=== PATIENT | male | born 1945 ===

== ENCOUNTER 2025-05-16 09:32 | Outpatient (AMB) | payer OTHER, SELFPAY ==
--- NOTE | 2025-05-16 09:38 | A.PHYSOV ---
Vital Signs 05/16/25 09:42 Weight 250 lb Intake Visit Reasons: F/U after injection 03/18/25 + rt wrist injection Intake Note: Patient is a 79 year old male in office today after Right L2 and L3 Transforaminal Epidural on 03/18/25. Patient also requesting a wrist injection. 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 The patient has a history of chronic lower back pain and lumbar radiculitis, with an MRI of the lumbar-sacral spine on October 05, 2023, revealing diffuse degenerative changes, spondylolisthesis of L5 on S1 with possible compression of the right L5 nerve root, and crowding of the L3 nerve roots. A thoracic spine MRI from August 12, 2022, showed moderate to severe spinal stenosis at T11-T12, for which the patient underwent a decompression and fusion of T10 through T12, which successfully alleviated lower thoracic pain and improved ambulation. The patient received right L2 and L3 transforaminal injections, most recently on March 18, 2025, which provided significant, miraculous relief. Approximately six weeks ago, the patient developed severe right wrist pain after repairing a fence with a drill. The pain is significant enough to prevent the patient from holding a cell phone or a glass of water and disrupts sleep. The patient sought treatment at a walk-in orthopedic clinic where an X-ray was negative, and a cortisone injection was administered three weeks ago with little effect. They suggested a possible triangular fibrocartilage complex (TFCC) injury and referred the patient for an MRI, but the patient has been unable to schedule it. He contacted the MRI facility, and they never received a referral. The patient also tried six sessions of acupuncture without benefit. Pain Description - Back and Leg Pain: The patient described the previous injections as a miracle, providing 100% reduction of pain in both legs and knees. - Right Wrist Pain: The patient reports the onset was six weeks ago, possibly after using a drill while repairing a fence. - Location: The pain is localized to the ulnar side of the right wrist. - Severity and Quality: The pain is described as very painful. - Interference with Function: The pain prevents the patient from holding a cell phone or a glass of water and causes sleep disturbances. - Alleviating/Exacerbating Factors: The patient uses Tylenol to mitigate the pain. - Prior Treatments: A cortisone injection three weeks ago and six sessions of acupuncture did not provide significant relief. Results - Lumbar Sacral Spine MRI (10/05/2023): Showed diffuse degenerative changes, spondylolisthesis of L5 on S1 with crowding and possible compression of the right L5 nerve root, and crowding of the L3 nerve roots. - Thoracic Spine MRI (08/12/2022): Showed moderate to severe spinal stenosis at the T11-T12 level. - Right Wrist X-ray (recent): Did not show any significant findings. [facility] Medical History (Updated 05/16/25 @ 15:33 by Jasper Borjas DO) Post laminectomy syndrome Spinal stenosis, lumbar region with neurogenic claudication Lumbar radiculitis Right wrist pain Wrist pain Surgical History History of thoracic surgery (Unknown) History of neck surgery (Unknown) History of cholecystectomy (Unknown) History of broken leg (Unknown) Social History Alcohol intake: current Alcohol intake frequency: does not drink Patient Tobacco Use Status: Former Tobacco user Current occupational status: retired Review of Systems Narrative Review of Systems - Musculoskeletal: Reports severe, localized right wrist pain for the past six weeks. - Musculoskeletal: Reports history of chronic lower back pain, which is currently well-controlled after a recent injection. - Neurological: Reports history of lumbar radiculitis, with symptoms currently resolved. - Constitutional: Reports sleep disturbance secondary to right wrist pain. Physical Exam Exam Exam: Physical Exam - Musculoskeletal: Examination of the right wrist reveals point tenderness to palpation over the ulnar aspect, ulnar styloid process and over triangular cartilage. - Musculoskeletal: Pain is elicited with wrist movement. - Musculoskeletal: No significant tenderness is noted over the radial aspect of the wrist. Lumbar extension was restricted. Dural tension signs were negative. Neurological examination was nonfocal. Patient demonstrated no upper motor neuron signs. Office Procedures AMB Wrist Injection Wrist Joint injection Procedure Details: With patient sitting position medial aspect of the right wrist was prepped with alcohol. 1.5 in 25 gauge hypodermic needle was introduced percutaneously just distal to the ulnar styloid in the area of TFCC. Total volume of 1.5 cc containing 20 mg of triamcinolone and 2% lidocaine was peppered in the area. Patient reported 100% reduction of his pain immediately after the injection and tolerated procedure without complications. Wrist Joint Injection : Right Procedure code (CPT) selection complete Office Meds Kenalog 40 mg/mL suspension for injection Performing Provider: Jasper Borjas DO Per[facility] Administered by: Jasper Borjas DO on 05/16/25 15:30 Dose Route Admin Location Dispensed Lot Number Expiration Date [facility] [place] 20 mg intra-articular 1 mL [id number] [employer] Total Dispensed Waste 1 mL 50 % lidocaine (PF) 20 mg/mL (2 %) injection solution Performing Provider: Jasper Borjas DO [facility] Administered by: Jasper Borjas DO on 05/16/25 15:30 Dose Route Admin Location Dispensed Lot Number Expiration Date [facility] [employer] [place] 20 mg intra-articular 5 mL [id number] [employer] Total Dispensed Waste 5 mL 80 % Assessment & Plan Assessment & Plan (1) Right wrist pain: Code(s): M25.531 - Pain in right wrist Category: Medical (2) Lumbar radiculitis: Code(s): M54.16 - Radiculopathy, lumbar region Category: Medical (3) Spinal stenosis, lumbar region with neurogenic claudication: Code(s): M48.062 - Spinal stenosis, lumbar region with neurogenic claudication Category: Medical (4) Post laminectomy syndrome: Code(s): M96.1 - Postlaminectomy syndrome, not elsewhere classified Category: Medical Plan Pain Management - Affect: The patient reports the right wrist pain is driving me crazy and disrupts sleep most of the night. - Analgesia: The patient uses Tylenol for wrist pain. - Analgesia: Lumbar epidural steroid injections provide excellent relief for back and leg pain. - Activities of Daily Living: The wrist pain interferes with the ability to hold a coffee cup, cell phone, or a glass of water. Plan Patient was informed and verbally consented to the use of an ambient scribe for clinic note documentation during this visit. 1. Right Wrist Pain The patient's acute right wrist pain, which began six weeks ago and has not responded to a prior injection or acupuncture, is suspected to be a triangular fibrocartilage complex (TFCC) tear, given the mechanism of injury and focal tenderness. An MRI is necessary for diagnosis as the recent X-ray was normal. A steroid injection was administered to the point of maximal tenderness in the right wrist today for symptomatic relief. An MRI of the right wrist will be ordered, and the patient was advised to proceed with whichever MRI appointment becomes available first. Post-injection instructions were provided, including icing the area if soreness develops. 2. Chronic Lower Back Pain With Lumbar Radiculitis The patient's chronic lower back pain and radiculitis responded exceptionally well to the right L2 and L3 transforaminal injections performed on March 18, with the patient describing the relief as a miracle. The plan is to repeat these injections in approximately three to four months. Staff will contact the patient to schedule the procedure for sometime in June. Risks and benefits of the procedure were discussed with the patient. Potential alternative measures were also discussed. Patient understands that the procedure is completely elective. Potential side effects associated with injectable medications were discussed. All questions were answered to the patient's satisfaction. Discussion Notes I discussed with the patient the new onset of severe right wrist pain. I explained that based on the history and physical exam findings, a triangular fibrocartilage complex (TFCC) tear is suspected, which would not be visible on the patient's recent negative X-ray. I emphasized the need for an MRI to make a definitive diagnosis. We discussed management options, including the patient's request for another cortisone injection today due to severe pain and sleep disruption, despite having one three weeks prior at another facility. The patient consented to the procedure after I explained that while different steroids like Kenalog or Depo-Medrol can be used, the placement of the injection is the most critical factor. I will order an MRI of the right wrist, and we agreed that the patient should pursue whichever MRI appointment becomes available first, canceling the other. I provided post-procedure instructions, including icing the wrist if it becomes sore. We also reviewed the excellent response to the last lumbar epidural steroid injection from March 18, 2025. We agreed to schedule a repeat right L2 and L3 transforaminal injection for June, with staff to call the patient for scheduling. Patient Instructions - If your right wrist feels sore tonight, apply ice to the area. - We are ordering an MRI scan of your right wrist. - You have two referrals for an MRI; please schedule and complete the one that is available first, then cancel the other appointment. - Our office will call you to schedule your next back injection, which will be sometime in June. Orders: Orders MR wrist RT wo con Today M25.531 - Pain in right wrist AMB Wrist Injection Today M25.531 - Pain in right wrist Coding Level of Care Code Est Pt Level 4 (45964) Complex visit Add On G2211 Diagnoses Right wrist pain M25.531 Lumbar radiculitis M54.16 Spinal stenosis, lumbar region with neurogenic claudication M48.062 Post laminectomy syndrome M96.1 CPT Codes Wrist Joint injection - Ankle Joint Injection : Right ([id number])
--- OUTSIDE RECORDS SUMMARY | 2025-05-16 10:17 | XMS_ITS ---
Author Name [facility] Organization Unknown Results Test Name/Text Value Interpretation Date Range Source GLUCOSE BLDC GLUCOMTR [facility] 104.0 mg/dL Normal 03/29/2024 70 - 199 [facility] GLUCOSE BLDC GLUCOMTR [facility] 107.0 mg/dL Normal 02/09/2024 70 - 199 [facility] GLUCOSE BLDC GLUCOMTR [facility] 137.0 mg/dL Normal 10/23/2023 70 - 199 [facility] Service [facility] XXX-Imp Before Meal Normal 10/23/2023 [facility] ANION GAP SERPL [facility] 6.0 mmol/L Normal 10/23/2023 5 - 14 [facility] Glomerular filtration rate/1.73 sq M. predicted 36.0 Below low normal 10/23/2023 60 - [facility] CREAT SERPL [facility] 1.9 mg/dL Above high normal 10/23/2023 0.7 - 1.3 [facility] SODIUM SERPL [facility] 137.0 mmol/L Normal 10/23/2023 135 - 14 5 [facility] POTASSIUM SERPL [facility] 4.2 mmol/L Normal 10/23/2023 3.5 - 5.1 [facility] CHLORIDE SERPL [facility] 102.0 mmol/L Normal 10/23/2023 98 - 107 [facility] CALCIUM SERPL [facility] 9.4 mg/dL Normal 10/23/2023 8.4 - 10.2 [facility] HCO3 SER SC[facility] 29.0 mmol/L Normal 10/23/2023 24 - 32 [facility] BUN SERPL [facility] 44.0 mg/dL Above high normal 10/23/2023 9 - 2 0 [facility] GLUCOSE SERPL [facility] 129.0 mg/dL Normal 10/23/2023 70 - 199 [facility] Glomerular filtration rate/1.73 sq M. predicted 38.0 Below low normal 10/23/2023 60 - [facility] CREAT SERPL [facility] 1.8 mg/dL Above high normal 10/23/2023 0.7 - 1.3 [facility] GLUCOSE BLDC GLUCOMTR [facility] 171.0 mg/dL Normal 10/23/2023 70 - 199 [facility] GLUCOSE BLDC GLUCOMTR [facility] 131.0 mg/dL Normal 10/22/2023 70 - 199 [facility] Service [facility] XXX-Imp After Meal Normal 10/22/2023 [facility] Service [facility] XXX-Imp After Meal Normal 10/22/2023 [facility] GLUCOSE BLDC GLUCOMTR [facility] 215.0 mg/dL Above high normal 10/22/2023 70 - 199 [facility] GLUCOSE BLDC GLUCOMTR [facility] 156.0 mg/dL Normal 10/22/2023 70 - 199 [facility] CREAT SERPL MCNC 2.0 mg/dL Above high normal 10/22/2023 0.7 - 1.3 [facility] SODIUM SERPL SCNC 137.0 mmol/L Normal 10/22/2023 135 - 14 5 [facility] POTASSIUM SERPL SCNC 4.2 mmol/L Normal 10/22/2023 3.5 - 5.1 [facility] ANION GAP SERPL SCNC 7.0 mmol/L Normal 10/22/2023 5 - 14 [facility] Glomerular filtration rate/1.73 sq M. predicted 34.0 Below low normal 10/22/2023 60 - [facility] BUN SERPL MCNC 39.0 mg/dL Above high normal 10/22/2023 9 - 2 0 [facility] CHLORIDE SERPL SCNC 102.0 mmol/L Normal 10/22/2023 98 - 107 [facility] CALCIUM SERPL [facility] 9.4 mg/dL Normal 10/22/2023 8.4 - 10.2 [facility] GLUCOSE SERPL MCNC 129.0 mg/dL Normal 10/22/2023 70 - 199 [facility] HCO3 SER SC[facility] 28.0 mmol/L Normal 10/22/2023 24 - 32 [facility] GLUCOSE BLDC GLUCOMTR [facility] 159.0 mg/dL Normal 10/22/2023 70 - 199 [facility] GLUCOSE BLDC GLUCOMTR MC[facility] 182.0 mg/dL Normal 10/21/2023 70 - 199 [facility] GLUCOSE BLDC GLUCOMTR [facility] 218.0 mg/dL Above high normal 10/21/2023 70 - 199 [facility] GLUCOSE BLDC GLUCOMTR MC[facility] 126.0 mg/dL Normal 10/21/2023 70 - 199 [facility] GLUCOSE SERPL MCNC 121.0 mg/dL Normal 10/21/2023 70 - 199 [facility] CHLORIDE SERPL SCNC 100.0 mmol/L Normal 10/21/2023 98 - 107 [facility] HCO3 SER SCNC 26.0 mmol/L Normal 10/21/2023 24 - 32 CTT [facility] SODIUM SERPL SCNC 136.0 mmol/L Normal 10/21/2023 135 - 14 5 [facility] Glomerular filtration rate/1.73 sq M. predicted 36.0 Below low normal 10/21/2023 60 - [facility] ANION GAP SERPL SCNC 10.0 mmol/L Normal 10/21/2023 5 - 14 [facility] BUN SERPL MCNC 37.0 mg/dL Above high normal 10/21/2023 9 - 2 0 [facility] CREAT SERPL MCNC 1.9 mg/dL Above high normal 10/21/2023 0.7 - 1.3 [facility] CALCIUM SERPL MCNC 9.4 mg/dL Normal 10/21/2023 8.4 - 10.2 [facility] POTASSIUM SERPL SCNC 4.3 mmol/L Normal 10/21/2023 3.5 - 5.1 [facility] GLUCOSE BLDC GLUCOMTR [facility] 271.0 mg/dL Above high normal 10/21/2023 70 - 199 [facility] GLUCOSE BLDC GLUCOMTR MC[facility] 124.0 mg/dL Normal 10/20/2023 70 - 199 [facility] BLOOD BANK CMNT PATIENT-IMP Testing performed at [facility], [address] [place] [id number], April White MD Senior Ui Developer, FRANC [id number] Normal 10/20/2023 [facility] ABO+RH GP BLD A POSITIVE Normal 10/20/2023 [facility] GLUCOSE BLDC GLUCOMTR [facility] 104.0 mg/dL Normal 10/20/2023 70 - 199 [facility] BLD GP AB SCN SERPL QL NEGATIVE Normal 10/20/2023 [facility] ABO+RH GP BLD A POSITIVE Normal 10/20/2023 [facility] BLOOD BANK CMNT PATIENT-IMP Testing performed at [facility], [address] [place] [id number], April White MD Senior Ui Developer, [facility] [id number] Normal 10/20/2023 [facility] History of Medication Use Medication Directions Dispensed Refills Start Date End Date Status amoxicillin (AMOXIL) 500 mg capsule PLEASE SEE ATTACHED FOR DETAILED DIRECTIONS 02/17/20 active chlorhexidine (PERIDEX) 0.12 % solution RINSE WITH 1/2 OUNCE BY MOUTH TWICE A DAY DIRECTED. DO NOT SWALLOW 02/17/20 24 active oxyCODONE-acetaminophen (PERCOCET) 5-325 MG per tablet Take 1 tablet by mouth every 6 (six) hours as needed for pain. 11/03/19 24 024 aborted oxyCODONE-acetaminophen (PERCOCET) 5-325 MG per tablet Take 1 tablet by mouth every 6 (six) hours as needed for pain. 11/03/19 24 active oxyCODONE (ROXICODONE) 5 MG immediate release tablet Take 1-2 tablets (5-10 mg total) by mouth every 4 (four) hours as needed for pain. 10/27/19 24 024 aborted aspirin 81 MG chewable tablet Chew 1 tablet (81 mg total) by mouth daily. 10/27/19 24 024 aborted aspirin 81 mg EC tablet Take 1 tablet (8 1 mg total) by mouth 1 (one) time each day. 10/27/19 24 active aspirin EC 81 MG tablet Take 1 tablet (8 1 mg total) by mouth daily. 10/27/19 24 active cyclobenzaprine (FLEXERIL) 5 MG tablet Take 2 tablets (10 mg total) by mouth 3 (three) times a day as needed for muscle spasms. 10/27/19 24 active oxyCODONE (ROXICODONE) 5 MG immediate release tablet Take 1-2 tablets (5-10 mg total) by mouth every 4 (four) hours as needed for pain. 10/27/19 active sodium chloride 0.9% bolus (NS) 500 mL 500 mL, Intravenous, at 500 mL/hr, Once, On Thu10/22/23 at 1445, For 1 dose 10/22/19 024 completed aspirin EC 81 MG tablet Take 1 tablet (8 1 mg total) by mouth daily. 10/21/19 024 active bisacodyl (DULCOLAX) suppository 10 mg 10 mg, Rectal, Once as needed, constipation, Starting on Thu10/21/23 at 0000, For 1 doseAdminister POD#2 if no BM 10/21/19 active hydroCHLOROthiazide (HYDRODIURIL) tablet 25 mg 25 mg, Oral, Daily, First dose on Thu10/21/23 at 0900 10/21/19 active insulin glargine (LANTUS) injection 30 Units 30 Units, Subcutaneous, 2 times daily, First dose on Thu10/20/23 at 2100 10/21/19 active metFORMIN (GLUCOPHAGE) tablet 1,000 mg 1,000 mg, Oral, Every Morning with breakfast, First dose on Thu10/21/23 at 0800 10/21/19 active polyethylene glycol (MIRALAX) packet 17 g 17 g, Oral, Daily, First dose on Thu10/21/23 at 0900 10/21/19 24 active senna (SENOKOT) 8.6 MG tablet Take 1 tablet by mouth 2 (two) times a day. 10/21/19 active tamsulosin (FLOMAX) 24 hr capsule 0.4 mg 0.4 mg, Oral, Every Night at Bedtime, First dose (after last modification) on Thu10/20/23 at 2300 10/21/19 active valsartan (DIOVAN) tablet 160 mg 160 mg, Oral, Daily, First dose on Thu10/21/23 at 0900 10/21/19 active cyclobenzaprine (FLEXERIL) 5 MG tablet Take 2 tablets (10 mg total) by mouth 3 (three) times a day as needed for muscle spasms. 10/20/19 024 aborted senna (SENOKOT) 8.6 MG tablet Take 1 tablet by mouth 2 (two) times a day. 10/20/19 active ceFAZolin (ANCEF) injection 2 g 2 g, Intravenous, Every 8 hours, First dose on Thu10/20/23 at 1800, For 2 dosesTotal of 3 doses; 1 dose pre-op, 2 doses post-op For Adults, if ordered IV then reconstitute each 1GM vial with 10mL sterile water or normal saline and administer IV Push over 3-5 minutes. 10/20/19 completed acetaminophen (TYLENOL EXTRA STRENGTH) 500 MG tablet 1,000 mg 1,000 mg, Oral, Once, On Thu10/20/23 at 0945, For 1 dose, Pre-opDo not administer to patients with abnormal LFTS. Do Not exceed 3000 mg in 24 hours. 10/20/19 completed gabapentin (NEURONTIN) capsule 100 mg 100 mg, Oral, Once, On Thu10/20/23 at 0945, For 1 dose, Pre-opHold for patients greater than 75 years old. 10/20/19 completed HYDROmorphone (DILAUDID) injection 0.5 mg 0.5 mg, Intravenous, Every 15 min PRN, severe pain (7-10), Starting on Thu10/20/23 at 1331, PACU/Phase 1FOR PACU USE ONLY. If unable to take by mouth. Do not exceed 2 mg. Administer IV push over 2-3 minutes. 10/20/19 aborted orphenadrine (NORFLEX) injection 30 mg 30 mg, Intravenous, Once as needed, muscle spasms, for musculoskeletal pain, to achieve pain scale less than or equal to 4, Starting on Thu10/20/23 at 1331, For 1 dose, PACU/Phase 1 10/20/19 completed acetaminophen (TYLENOL) tablet 650 mg 650 mg, Oral, Every 6 hours PRN, for any level of discomfort, Starting on Thu10/20/23 at 1631 10/20/19 active benzocaine-menthol (CEPACOL) lozenge 1 lozenge 1 lozenge, Oral, Every 2 hours PRN, sore throat, Starting on Thu10/20/23 at 1631 10/20/19 active dextrose (D10W) 10% bolus 125 mL [Order 1 Start] Name: dextrose (D10W) 10% bolus 125 mL Signed Summary: 125 mL, Intravenous, Administer over 10 Minutes, at 750 mL/hr, As needed, low blood sugar, Starting on Thu10/20/23 at 1559Hypoglycemia defined as FSG<70mg/dl. Use for responsive patients WITH IV access AND unable to tolerate PO 10/20/19 active dextrose 5 % and sodium chloride 0.45 % with KCl 20 mEq/L infusion 100 mL/hr, Intravenous, Continuous, Starting on Thu10/20/23 at 1645Continue infusion until patient tolerating PO, then order may be discontinued. 10/20/19 active docusate sodium (COLACE) capsule 100 mg 100 mg, Oral, 2 times daily, First dose on Thu10/20/23 at 1800Hold for loose stools 10/20/19 active HYDROmorphone (DILAUDID) injection 1 mg 1 mg, Intravenous, Every 3 hours PRN, severe pain (7-10), Starting on Thu10/20/23 at 1631IV Push Administer over 2-5 minutes Administer IV push over 2-3 minutes. 10/20/19 active insulin Lispro (HumaLOG) injection 1-6 Units 1-6 Units, Subcutaneous, 3 times daily before meals, First dose on Thu10/20/23 at 1630LOW CORRECTIONAL DOSE (Elderly or insulin sensitive patient or insulin TDD is less than 43 units ) Blood Gluc 10/20/19 active lactated ringers infusion 100 mL/hr, Intravenous, Continuous, Starting on Thu10/20/23 at 0945, Pre-op 10/20/19 active metoclopramide (REGLAN) injection 10 mg 10 mg, Intravenous, Every 6 hours PRN, nausea, vomiting, Starting on Thu10/20/23 at 1631To be administered if nausea/vomiting not resolved by zofran. 10/20/19 24 active naloxone (NARCAN) injection 0.4 mg 0.4 mg, Intravenous, Every 15 min PRN, opioid reversal, respiratory depression, Starting on Thu10/20/23 at 1631Prn respiratory rate less than 9 or RASS score of -4 to -5. 10/20/19 24 active ondansetron (ZOFRAN) injection 4 mg 4 mg, Intravenous, Every 6 hours PRN, nausea, vomiting, Starting on Thu10/20/23 at 1631 10/20/19 24 active oxyCODONE (ROXICODONE) 5 MG immediate release tablet Take 1 tablet (5 mg total) by mouth every 4 (four) hours as needed. 10/20/19 24 active oxyCODONE (ROXICODONE) 5 MG immediate release tablet 10 mg 10 mg, Oral, Every 4 hours PRN, moderate pain (4-6), Starting on Thu10/20/23 at 1631 10/20/19 24 active fenofibrate (TRICOR) 145 MG tablet 06/09/20 23 active valsartan-hydroCHLOROth iazide (DIOVAN-HCT) 160-25 MG per tablet Take 1 tablet by mouth daily. 05/19/20 23 active Lantus SoloStar 100 UNIT/ML prefilled pen injection INJECT 60 UNITS INTO THE SKIN 2 TIMES DAILY. 05/10/20 23 active tamsulosin (FLOMAX) 0.4 MG capsule TAKE 1 CAPSULE BY MOUTH 30 MINS AFTER SAME MEAL EVERY DAY. 03/21/20 23 active metFORMIN (GLUCOPHAGE) 1000 MG tablet TAKE 1 TABLET BY MOUTH TWICE A DAY W/MEALS 03/16/20 23 active ezetimibe (ZeTIA) 10 MG tablet Take 10 mg by mouth daily. 03/15/20 23 active ciprofloxacin-dexametha sone (CIPRODEX) otic suspension INSTILL 4 DROPS IN LEFT EAR TWICE A DAY FOR 14 DAYS 07/04/19 23 024 aborted ciprofloxacin-dexametha sone (CIPRODEX) otic suspension INSTILL 4 DROPS IN LEFT EAR TWICE A DAY FOR 14 DAYS 07/04/19 23 active testosterone (ANDROGEL) gel 1% (25 mg testosterone/2.5 g gel) See Instructions, USE 1 PACKET DAILY, # 150 pack/packet, 0 Refills, Maintenance, 07/01/22 9:20:00 EST, [facility]/pharmacy #[id number], DX: hypoandrogenism, 182.88, cm, 04/15/22 8:49:00 EDT, Height, 121.7, kg, 04/19/21 11:27:00 EDT, Dry Weight 07/01/19 23 024 aborted testosterone (ANDROGEL) gel 1% (25 mg testosterone/2.5 g gel) See Instructions, USE 1 PACKET DAILY, # 150 pack/packet, 0 Refills, Maintenance, 07/01/22 9:20:00 EST, [facility]/pharmacy #[id number], DX: hypoandrogenism, 182.88, cm, 04/15/22 8:49:00 EDT, Height, 121.7, kg, 04/19/21 11:27:00 EDT, Dry Weight 07/01/19 23 active sildenafil (VIAGRA) 100 MG tablet PLEASE SEE ATTACHED FOR DETAILED DIRECTIONS 06/27/19 active sildenafil (VIAGRA) 100 MG tablet PLEASE SEE ATTACHED FOR DETAILED DIRECTIONS 06/27/19 23 active lisinopril-hydroCHLOROt hiazide (PRINZIDE,ZESTORETIC) tablet 10-12.5 mg Take 1 tablet by mouth daily. 01/03/20 22 024 aborted lisinopril-hydroCHLOROt hiazide (PRINZIDE,ZESTORETIC) 10-12.5 mg per tablet See Instructions, TAKE 1 TABLET BY MOUTH EVERY DAY, # 90 tablet, 1 Refills, Maintenance, 09/15/22 18:51:00 EDT, [facility]/pharmacy #[id number], 90, TAKE 1 TABLET BY MOUTH EVERY DAY, 182.88, cm, 07/17/22 8:10:00 EST, Height, 121.7, kg, 04/19/21 11:27:00 EDT, Dry W... 01/03/20 22 active lisinopril-hydroCHLOROt hiazide (PRINZIDE,ZESTORETIC) tablet 10-12.5 mg Take 1 tablet by mouth daily. 01/03/20 22 active sildenafiL (VIAGRA) 100 mg tablet PLEASE SEE ATTACHED FOR DETAILED DIRECTIONS 01/03/20 active ezetimibe (ZETIA) 10 mg tablet 12/17/19 active tamsulosin (FLOMAX) capsule TAKE 1 CAPSULE BY MOUTH 30 MINS AFTER SAME MEAL EVERY DAY. 11/17/19 active fenofibrate (TRICOR) 145 mg tablet Take 145 mg by mouth. 11/13/19 active Lantus Solostar U-100 Insulin 100 unit/mL (3 mL) insulin pen INJECT 60 UNITS INTO THE SKIN 2 TIMES DAILY. 11/13/19 active valsartan-hydrochloroth iazide (DIOVAN-HCT) 160-25 mg per tablet Take 1 tablet by mouth. 10/25/19 active cyclobenzaprine (FLEXERIL) 10 MG tablet Take 1 tablet (10 mg total) by mouth 3 (three) times a day as needed for muscle spasms. 09/28/19 024 aborted Diclofenac Sodium 1 % GEL Apply 1 applicator topically. 09/28/19 024 aborted cyclobenzaprine (FLEXERIL) 10 mg tablet Take 1 tablet (10 mg total) by mouth 3 (three) times a day if needed. 09/28/19 active cyclobenzaprine (FLEXERIL) 10 MG tablet Take 1 tablet (10 mg total) by mouth 3 (three) times a day as needed for muscle spasms. 09/28/19 active diclofenac (VOLTAREN) 1 % topical gel Apply 1 applicator topically. 09/28/19 active Diclofenac Sodium 1 % GEL Apply 1 applicator topically. 09/28/19 active metFORMIN XR (GLUCOPHAGE-XR) 500 mg 24 hr tablet Take 1 tablet (500 mg total) by mouth. 08/31/19 active fenofibrate (TRICOR) 145 mg tablet Take 1 tablet (145 mg total) by mouth 1 (one) time each day. 04/15/20 active fenofibrate (TRICOR) tablet 145 mg Take 1 tablet by mouth daily. 04/15/20 active fenofibrate (TRICOR) tablet 145 mg Take 1 tablet (145 mg total) by mouth daily. 04/15/20 active fenofibrate (TRICOR) tablet 145 mg 145 mg, Oral, Every Night at Bedtime, First dose (after last modification) on Thu10/20/23 at 2300 04/15/20 21 active LISINOPRIL PO Take by mouth. 0 21 024 active LISINOPRIL PO Take by mouth. 0 21 active tamsulosin (FLOMAX) 0.4 mg 24 hr capsule TAKE 1 CAPSULE BY MOUTH 30 MINS AFTER SAME MEAL EVERY DAY. 08/14/19 21 active tamsulosin (FLOMAX) 0.4 MG CAPS TAKE 1 CAPSULE BY MOUTH 30 MINS AFTER SAME MEAL EVERY DAY. 08/14/19 21 active tamsulosin (FLOMAX) 0.4 MG CAPS TAKE 1 CAPSULE BY MOUTH 30 MINS AFTER SAME MEAL EVERY DAY. 08/14/19 21 active testosterone (ANDROGEL) gel 1% (50 mg testosterone /5 g gel) APPLY 1 PACKET TO SKIN EVERY DAY 07/30/19 21 active testosterone (ANDROGEL) gel 1% (50 mg testosterone /5 g gel) APPLY 1 PACKET TO SKIN EVERY DAY 07/30/19 21 active testosterone 50 mg/5 gram (1 %) gel APPLY 1 PACKET TO SKIN EVERY DAY 07/30/19 21 active gemfibrozil (LOPID) 600 MG tablet TAKE 1 TAB BY MOUTH 2 TIMES DAILY (BEFORE MEALS) 07/09/19 21 024 active gemfibrozil (LOPID) 600 MG tablet TAKE 1 TAB BY MOUTH 2 TIMES DAILY (BEFORE MEALS) 07/09/19 21 active gemfibroziL (LOPID) 600 mg tablet TAKE 1 TAB BY MOUTH 2 TIMES DAILY (BEFORE MEALS) 07/09/19 21 active polyethylene glycol-electrolytes (NULYTELY) 420 g solution 06/18/19 21 024 aborted polyethylene glycol-electrolytes (NULYTELY) 420 g solution 06/18/19 21 active polyethylene glycol-electrolytes (NULYTELY) 420 gram solution 06/18/19 21 active ezetimibe (ZETIA) 10 mg tablet Take 1 tablet (10 mg total) by mouth 1 (one) time each day. 08/04/19 20 active ezetimibe (ZETIA) tablet 10 mg Take 1 tablet (10 mg total) by mouth daily. 08/04/19 20 active ezetimibe (ZETIA) tablet 10 mg Take 1 tablet by mouth daily. 08/04/19 active ezetimibe (ZETIA) tablet 10 mg 10 mg, Oral, Every Night at Bedtime, First dose (after last modification) on Thu10/20/23 at 2300 08/04/19 active insulin glargine (Lantus Solostar U-100 Insulin) 100 unit/mL (3 mL) injection pen Inject 60 Units under the skin 2 (two) times a day. 65 units AM and 60 units PM pcp note 08/04/19 active insulin glargine (Lantus SoloStar) 100 UNIT/ML injection Inject 60 Units under the skin. 08/04/19 active insulin glargine (Lantus SoloStar) 100 UNIT/ML injection Inject 60 Units under the skin. 08/04/19 active metFORMIN (GLUCOPHAGE) 1,000 mg tablet Take 1 tablet (1,000 mg total) by mouth. 06/20/19 active metFORMIN (GLUCOPHAGE) tablet 1000 mg Take 1 tablet (1,000 mg total) by mouth every morning with breakfast. 06/20/19 active metFORMIN (GLUCOPHAGE) tablet 1000 mg Take 1 tablet (1,000 mg total) by mouth 2 (two) times a day with meals. 06/20/19 active metFORMIN (GLUCOPHAGE) tablet 1000 mg Take 1 tablet by mouth 2 (two) times a day with meals. 06/20/19 active blood sugar diagnostic (FreeStyle Lite Strips) test strip TEST BLOOD SUGAR THREE TIMES DAILY 05/26/20 17 active Insulin Pen Needle 30G X 8 MM MISC 1 Device. 05/26/20 17 active Insulin Pen Needle 30G X 8 MM MISC 1 Device. 05/26/20 17 active valsartan-hydroCHLOROth iazide (DIOVAN HCT) tablet 160-25 mg Take 1 tablet by mouth. 10/12/19 16 active valsartan-hydroCHLOROth iazide (DIOVAN HCT) tablet 160-25 mg Take 1 tablet by mouth. 10/12/19 16 active valsartan-hydroCHLOROth iazide (DIOVAN-HCT) 160-25 mg per tablet Take 1 tablet by mouth. 10/12/19 16 active FREESTYLE LANCETS MISC 1 each by Not Applicable route. 09/05/19 16 active Lancets (freestyle) lancets 1 each by Does not apply route. 09/05/19 16 active Lancets (freestyle) lancets 1 each by Does not apply route. 09/05/19 16 active metformin HCl (GLUCOPHAGE ORAL) Take 1,000 mg by mouth. 08/24/19 15 active chlorhexidine gluconate 0.12 % mouthwash RINSE AND SPIT DIRECTED TWICE A DAY active ciprofloxacin 0.3 %-dexamethasone 0.1 % ear drops,suspension INSTILL 4 DROPS IN LEFT EAR TWICE A DAY FOR 14 DAYS active cyclobenzaprine 10 mg tablet TAKE 1 TABLET BY MOUTH THREE TIMES A DAY NEEDED FOR MUSCLE SPASMS active diclofenac 1 % topical gel APPLY 1 APPLICATOR TOPICALLY 2 TIMES DAILY NEEDED (PAIN). active ezetimibe 10 mg tablet TAKE 1 TABLET BY MOUTH EVERY DAY active fenofibrate nanocrystallized 145 mg tablet TAKE 1 TABLET BY MOUTH EVERY DAY active Lantus Solostar U-100 Insulin 100 unit/mL (3 mL) subcutaneous pen INJECT 60 UNITS INTO THE SKIN 2 TIMES DAILY. active levofloxacin 500 mg tablet TAKE 1 TABLET BY MOUTH ONCE ON THE DAY BEFORE PROCEDURE active lisinopril 10 mg-hydrochlorothiazide 12.5 mg tablet TAKE 1 TABLET BY MOUTH EVERY DAY active metformin 1,000 mg tablet TAKE 1 TABLET BY MOUTH TWICE A DAY W/MEALS active prednisone 20 mg tablet TAKE 3 TABS FOR 3 DAYS, TAKE 2 TABS FOR 3 DAYS, TAKE 1 TAB FOR 3 DAYS active sildenafil 100 mg tablet PLEASE SEE ATTACHED FOR DETAILED DIRECTIONS active tamsulosin 0.4 mg capsule TAKE 1 CAPSULE BY MOUTH 30 MINS AFTER SAME MEAL EVERY DAY. active testosterone 1 % (25 mg/2.5 gram) transdermal gel packet APPLY 1 PACKET TOPICALLY ONCE DAILY active testosterone 50 mg/5 gram (1 %) transdermal gel APPLY 1 PACKET TO SKIN EVERY DAY active valsartan 160 mg-hydrochlorothiazide 25 mg tablet TAKE 1 TABLET BY MOUTH EVERY DAY active acetaminophen (TYLENOL) 325 mg tablet Take 2 tablets (650 mg total) by mouth every 6 hours as needed. active acetaminophen (TYLENOL) 325 MG tablet Take 2 tablets (650 mg total) by mouth every 6 (six) hours as needed for pain. active aspirin 81 mg chewable tablet Take 81 mg by mouth in the morning. active aspirin 81 MG chewable tablet Chew 81 mg by mouth. active aspirin 81 MG chewable tablet Chew 81 mg. 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 active 2015-09-15 5 ProblemAct [facility] Spinal stenosis of lumbar region without neurogenic claudication active EncounterDiagnosisAct [facility] MG ARISTIDES-inhibitor cough active 2024-01-15 3 ProblemAct [facility] Lumbar facet arthropathy active 2024-01-14 9 ProblemAct [facility] CKD stage G3b/A1, GFR 30-44 and albumin creatinine ratio <30 mg/g active 2023-09-15 3 ProblemAct [facility] Thoracic spinal stenosis active 8 ProblemAct [facility] Spondylolysis active 2022-08-14 1 ProblemAct [facility] Diabetes mellitus with insulin therapy active 2024-01-15 3 ProblemAct [facility] 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 active 3 ProblemAct [facility] Trochanteric bursitis of both hips active EncounterDiagnosisAct [facility]THNE MG Malignant melanoma of left lower extremity including hip active 2024-01-15 3 ProblemAct [facility] Type 2 diabetes, uncontrolled, with renal manifestation active 8 ProblemAct [facility] Bilateral hip pain active EncounterDiagnosisAct [facility] History of malignant melanoma of skin active 2012-08-13 5 ProblemAct [facility] Class 2 severe obesity with serious comorbidity and body mass index (BMI) of 36.0 to 36.9 in adult active 2018-10-14 2 ProblemAct [facility] Elective surgery active 7 ProblemAct [facility] History of diabetes mellitus active 2022-08-14 1 ProblemAct [facility] Malignant melanoma of left lower extremity including hip active ProblemAct [facility] Hyperlipidemia active 3 ProblemAct [facility] Diabetes mellitus with nephropathy active 2 ProblemAct [facility] Known medical problems active 2024-01-15 7 ProblemAct [facility] CKD stage G3b/A1, GFR 30-44 and albumin creatinine ratio <30 mg/g active ProblemAct [facility] Mass of thigh active 2014-08-14 5 ProblemAct [facility] Lumbar radiculitis active 2018-05-15 7 ProblemAct [facility] Lumbosacral pain active 6 ProblemAct [facility] Balance problem active 6 ProblemAct [facility] Lumbar spondylosis active 6 ProblemAct [facility] Hypertension active 3 ProblemAct [facility] Type I (juvenile type) diabetes mellitus with renal manifestations, not stated as uncontrolled(250.41) active ProblemAct [facility]SF RAN BPH (benign prostatic hyperplasia) active 9 ProblemAct [facility] Hypotestosteronism active 3 ProblemAct [facility] 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 active 3 ProblemAct [facility] Class 2 severe obesity with serious comorbidity and body mass index (BMI) of 36.0 to 36.9 in adult active ProblemAct [facility]_THS LIZZ Spondylolysis active ProblemAct [facility] SFR[facility] Obesity (BMI 30-39.9) active 2014-08-14 3 ProblemAct [facility] Diabetes mellitus with insulin therapy active ProblemAct [facility] Thoracic spinal stenosis active ProblemAct [facility] Esophageal reflux active 2014-12-14 2 ProblemAct [facility] ARISTIDES-inhibitor cough active ProblemAct [facility] Erectile dysfunction active 2021-12-14 1 ProblemAct [facility] BPPV (benign paroxysmal positional vertigo), left active EncounterDiagnosisAct [facility] Dizziness active EncounterDiagnosisAct [facility] Lumbar spondylosis active 2022-08-14 1 ProblemAct [facility]AON[facility] Body mass index 30+ - obesity active 2022-08-14 1 ProblemAct [facility] Spinal stenosis of thoracic region active 2022-08-14 1 ProblemAct ENS_AONECT Lumbar pain active 8 ProblemAct CTUCHS Low back pain active 2022-08-14 1 ProblemAct ENS_AONECT Immunizations Vaccine Date Source Lot Number Status Influenza trivalent, with pr eservative (Fluzone; Afluria) 6mo and older 02/24/2023 [facility] [id number] completed Zoster recombinant (Shingrix ) 19yo and older 04/04/2022 [facility] [id number] completed Influenza trivalent, with pr eservative (Fluzone; Afluria) 6mo and older 03/27/2022 [facility] [id number] completed [employer] [address] (ages 12 & older) CATERINA S-CoV-2 COVID-19, mRNA, LNP-S, bhaskar-sucrose, preservative free 09/22/2021 [id number] completed Pfizer SARS-CoV-2 COVID-19, mRNA, LNP-S, preservative free 09/22/2021 [facility] [id number] completed Zoster recombinant (Shingrix ) 19yo and older 04/02/2021 [facility] [id number] completed Influenza trivalent, with pr eservative (Fluzone; Afluria) 6mo and older 03/22/2021 [facility] [id number] completed Pfizer SARS-CoV-2 COVID-19, mRNA, LNP-S, preservative free 09/24/2020 [facility] [id number] completed Pfizer SARS-CoV-2 COVID-19, mRNA, LNP-S, preservative free 09/03/2020 [facility] [id number] completed Influenza trivalent, with pr eservative (Fluzone; Afluria) 6mo and older 03/12/2020 [facility] [id number] completed Influenza Quadravalent, MDCK , 0.5ml, preservative free (Flucelvax) 6mo and older 07/16/2018 [facility] [id number] completed Influenza trivalent, with pr eservative (Fluzone; Afluria) 6mo and older 06/04/2016 [facility] [id number] completed Pneumococcal conjugate 13 va lent (Prevnar 13, PCV13) 2mo and older 06/04/2016 [facility] [id number] complet ed Hepatitis A Adult (Havrix; V aqta) 19yo and older 09/05/2015 [facility] completed Hepatitis A Adult (Havrix; V aqta) 19yo and older 08/29/2015 [facility] [id number] completed Hepatitis A Adult (Havrix; V aqta) 19yo and older 08/23/2014 [facility] [id number] completed Tdap Tetanus diptheria acell ular pertussis (Boostrix; Adacel) 7yo and older 08/23/2014 [facility] [id number] completed Typhoid VICPS (Typhim Vi) 2yo and older 08/23/2014 [facility] X8628-0 completed Yellow Fever (YF-VAX) 9mo and older 08/23/2014 [facility] [id number] completed Influenza trivalent, with pr eservative (Fluzone; Afluria) 6mo and older 04/26/2014 [facility] [id number] completed Pneumococcal polysaccharide 23 valent (Pneumovax 23) 2yo and older 04/26/2014 [facility] [id number] com pleted Influenza trivalent, with pr eservative (Fluzone; Afluria) 6mo and older 05/05/2013 [id number] completed Td, Unspecified 01/13/2013 [facility] [id number] completed Encounters Encounter Type Encounter Reason Primary Diagnosis Location Date Ambulatory Radiculopathy, lumbar region Radiculopathy, lumbar region [facility] 04/28/2024 Ambulatory Radiculopathy, lumbar region Radiculopathy, lumbar region [facility] [place] Ambulatory Pain in right hip Pain in right hip [facility] [place]/25/2024 Ambulatory Spondylosis without myelopathy or radiculopathy, lumbar region Spondylosis without myelopathy or radiculopathy, lumbar region [facility] [place]09/2024 Inpatient Pain, unspecified Pain, unspecified [facility] [place]/20/2023 Ambulatory Other symptoms and signs involving the nervous system Other symptoms and signs involving the nervous system [facility] [place]02/2023 Ambulatory Benign paroxysmal vertigo, left ear Benign paroxysmal vertigo, left ear [facility] 07/07/2023 Ambulatory Benign paroxysmal vertigo, left ear Benign paroxysmal vertigo, left ear [facility] 07/01/2023 Ambulatory Dizziness and giddiness Dizziness and giddiness [facility] 06/10/2023 Ambulatory [facility] 05/26/2023 Ambulatory [facility] 04/21/2023 Ambulatory [facility] 01/14/2023 Ambulatory [facility] 12/11/2022 Ambulatory [facility] 11/07/2022 Ambulatory Low back pain, unspecified [facility] 12/18/2021 Ambulatory Low back pain, unspecified [facility] 12/18/2021 Ambulatory [facility] 12/18/2021 Ambulatory [facility] 12/18/2021 Ambulatory Low back pain, unspecified [facility] 12/18/2021 Care Team Organization Name Specialty Phone Email Start Date End Da te [facility] 04/30/2024 [facility] 04/28/2024 [facility] [place]2023 [facility] 10/01/2023 CC video Neelima Bentley Primary Care 07/05/2023 08/31/2024 CC video 06/10/2023 08/31/2024 CC video [facility]ENT[facility] Primary Care 06/10/2023 08/31/2024 CC video Neelima Bentley Primary Care 06/10/2023 06/10/2023 [facility] 04/09/2023 02/02/2025 [facility] Filipe Dubois Primary Care 04/22/2022 0802/2024 [facility] NO PCP Primary Care 12/18/202111/2021 [facility] PCP,No Primary Care 12/18/2021
--- OUTSIDE RECORDS SUMMARY | 2025-05-16 10:17 | XMS_ITS | Encounter Summary ---
Author Organization [facility], Address [address] [place] [address] Phone Care Team Providers Care Supervisor Finishing Room Name Role Phone Neelima Bentley MD Primary Care Provider [phone] Encounter Details Date Type Department Care Team (Late st Contact Info) Description 08/03/2024 Documentation Only [facility] [address] [place] [address] Juan Luis Martínez MD [address] [place] [address] [place] [address] Social History Tobacco Use Types Packs/Day Years Used Date Smoking Tobacco: Never Assessed Sex and Gender Information Value Date Recorded Sex Assigned at Male 05/26/2024 9:54 AM EST Legal Sex Male 11:11 AM EDT Gender Identity Male 05/26/2024 9:54 AM EST Sexual Orientation Straight 05/26/2024 9: 54 AM EST documented as of this encounter Plan of Treatment Upcoming Encounters Date Type Department Care Team (Late st Contact Info) Description 06/29/2025 9:00 AM EST Office Visit [facility] [address] [place] [phone] Juan Luis Martínez MD [address] [place] [address] [place] [address] documented as of this encounter Visit Diagnoses Not on filedocumented in this encounter Care Teams Supervisor Finishing Room Relationship Specialty Start Date End Date Neelima Bentley MD [address] [place] [address] PCP - General Internal Medicine 04/11/24 documented as of this encounter
--- OUTSIDE RECORDS SUMMARY | 2025-05-16 10:17 | XMS_ITS | Clinical Summary ---
Author Organization [address] Address [address] [place] [phone] Phone Care Team Providers Care Academic Services Coordinator Name Role Phone Neelima Bentley MD Primary Care Provider [phone] Allergies No known active allergies Medications ezetimibe (ZETIA) 10 mg tablet TAKE 1 TABLET BY MOUTH EVERY DAY 1 Active gemfibroziL (LOPID) 600 mg tablet TAKE 1 TAB BY MOUTH 2 TIMES DAILY (BEFORE MEALS) 1 Active LANTUS SOLOSTAR U-100 INSULIN 100 UNIT/ML (3 ML) SUBCUTANEOUS PEN 1 Active metFORMIN (GLUCOPHAGE) 1000 mg tablet TAKE 1 TABLET BY MOUTH TWICE A DAY WITH MEALS 1 Active polyethylene glycol-electrolyt es (NULYTELY) 420 gram solution 1 Active tamsulosin (FLOMAX) 0.4 mg 24 hr capsule TAKE 1 CAPSULE BY MOUTH 30 MINS AFTER SAME MEAL EVERY DAY. 1 Active testosterone 50 mg/5 gram (1 %) gel APPLY 1 PACKET TO SKIN EVERY DAY 1 Active valsartan-hydroch lorothiazide (DIOVAN-HCT) 160-25 mg per tablet TAKE 1 TABLET BY MOUTH EVERY DAY 1 Active Active Problems No known active problems Social History Tobacco Use Types Packs/Day Years Used Date Smoking Tobacco: Never Assessed Alcohol Use Standard Drinks/Week Comments Never 0 (1 standard drink = 0.6 oz pur e alcohol) AUDIT-C Answer Date Recorded Q1: How often do you have a drink containing alc ohol? Never 10/03/2020 Average Number of Drinks Not on file 021 Frequency of Binge Drinking Not on file 09/14 Sex and Gender Information Value Date Recorded Sex Assigned at Not on file Legal Sex Male 1:35 PM EDT Gender Identity Not on file Sexual Orientation Not on file Last Filed Vital Signs Vital Sign Reading Time Taken Comments Blood Pressure - - Pulse - - Temperature 36.4 C (97.5 F) 10/03/2020 3:22 PM EDT Respiratory Rate 20 10/03/2020 3:22 PM EDT Oxygen Saturation - - Inhaled Oxygen Concentration - - Weight - - Height - - Body Mass Index - - Plan of Treatment Health Maintenance Due Date Last Done Comments HIV screening 08/27/1958 Hepatitis C screening 1963 Tetanus adult (Td q 10,TDAP once) 1966 Lipid disorder screening 1986 Diabetes screening 08/27/1991 Pneumococcal Vaccine (50+ ye ars) (1 of 1 - PCV) 1996 Shingles vaccine (Shingrix) (1 of 2 - Shingrix (RZV) 2 Dose Standard Series) 1996 RSV Immunization (1 - 1-dose 75+ series) 2021 Influenza vaccine 01/13/2025 Covid-19 vaccine series ( - 2024- season) 2025 Colon cancer screening, Colonoscopy Discontinued Meningococcal B Vaccine Aged Out No l onger eligible based on patient's age to complete this topic Meningococcal Vaccine Aged Out No jessica guanako eligible based on patient's age to complete this topic Insurance MEDICARE MANAGED [facility] MEDICARE MANAGED [facility] MEDICARE MANAGED [facility] Care Teams Academic Services Coordinator Relationship Specialty Start Date End Date Neelima Bentley MD PCP - General Internal Medicine 08/31/20
--- OUTSIDE RECORDS SUMMARY | 2025-05-16 10:17 | XMS_ITS | Encounter Summary ---
Author Organization [facility], Address [address] [place] [address] Phone Care Team Providers Care Food Bagging Machine Operator Name Role Phone Neelima Bentley MD Primary Care Provider [phone] Encounter Details Date Type Department Care Team (Late st Contact Info) Description 04/11/2024 Documentation Only [facility] [address] [place] [address] [place] [address] [place] [phone] Social History Tobacco Use Types Packs/Day Years [...] Visit [facility] Buster [address] [place] [phone] Juan Luis Martínez MD [address] [place] [address] [place] [phone] documented as of this encounter Visit Diagnoses Not on filedocumented in this encounter Care Teams Food Bagging Machine Operator Relationship Specialty Start Date End Date Neelima Bentley MD [address] [place] [address] PCP - General Internal Medicine 04/11/24 documented as of this encounter
--- OUTSIDE RECORDS SUMMARY | 2025-05-16 10:17 | XMS_ITS | Clinical Summary ---
Author Organization [facility] Address [address] [place] [address] Care Team Providers Care Antisqueak Chalker Name Role Phone Pcp, No MD Primary Care Provider Unavailabl e Allergies Active Allergy Reactions Criticality Noted Date Comments Dqfkibx-Wpe-Edd Reductase Inhibitors Other (see comments) 12/18/2021 Cramps Medications Lantus Solostar U-100 Insulin 100 unit/mL (3 mL) insulin pen INJECT 60 UNITS INTO THE SKIN 2 TIMES DAILY. 11/12/2021 Active metformin HCl (GLUCOPHAGE ORAL) Take 1,000 mg by mouth. 08/23/2014 Active valsartan-hydro chlorothiazide (DIOVAN-HCT) 160-25 mg per tablet Take 1 tablet by mouth. 10/24/2021 Active fenofibrate (TRICOR) 145 mg tablet Take 145 mg by mouth. 11/12/2021 Active ezetimibe (ZETIA) 10 mg tablet 12/16/2021 Active tamsulosin (FLOMAX) capsule TAKE 1 CAPSULE BY MOUTH 30 MINS AFTER SAME MEAL EVERY DAY. 11/16/2021 Active aspirin 81 mg chewable tablet Take 81 mg by mouth in the morning. Active Active Problems Problem Noted Date Diagnosed Date Thoracic spinal stenosis 12/20/2021 Lumbar pain 12/20/2021 Social History Tobacco Use Types Packs/Day Years Used Date Smoking Tobacco: Never Smokeless Tobacco: Never Alcohol Use Standard Drinks/Week Comments Yes 0 (1 standard drink = 0.6 oz pur e alcohol) Rarely Sex and Gender Information Value Date Recorded Sex Assigned at Not on file Legal Sex Male 2:50 AM EST Gender Identity Not on file Sexual Orientation Not on file Last Filed Vital Signs Vital Sign Reading Time Taken Comments Blood Pressure - - Pulse - - Temperature - - Respiratory Rate - - Oxygen Saturation - - Inhaled Oxygen Concentration - - Weight 123 kg (272 lb) 12/18/2021 9:54 AM EDT Height 180.3 cm (5' 11 ) 12/18/2021 9:54 AM EDT Body Mass Index 37.94 12/18/2021 9:54 AM EDT Plan of Treatment Health Maintenance Due Date Last Done Comments HIV Screening 1945 Pneumococcal Vaccine, 50+ Years (1 of 1 - PCV) 1996 Zoster Vaccines (1 of 2) 1996 DTaP,Tdap,and Td Vaccines (2 - Td or Tdap) 08/23/2024 08/23/2014 COVID-19 Vaccine (1 - 2024-2 6 season) 2025 Influenza Vaccine (#1) 2025 Hepatitis A Vaccines Aged Out 08/29/2015, 08/23/2014 No longer eligible based on patient's age to complete this topic HPV Vaccines Aged Out No longer eligi ble based on patient's age to complete this topic Meningococcal Vaccine Aged Out No jessica guanako eligible based on patient's age to complete this topic Insurance [facility] Care Teams Antisqueak Chalker Relationship Specialty Start Date End Date Delmy Vargas MD [address] [place] [address] PCP - General Internal Medicine 10/03/21
--- OUTSIDE RECORDS SUMMARY | 2025-05-16 10:17 | XMS_ITS | Clinical Summary ---
Author Organization [facility] Address [address] [place] [address] Care Team Providers Care Physician/Allergy/Immunology Name Role Phone Neelima Bentley MD Primary Care Provider Allergies Active Allergy Reactions Criticality Noted Date Comments Statins Other (See Comments) 12/17/2021 Cramps Other reaction(s): Other (See Comments) Outside Source Comment: Cramps Cramps Cramps Medications Medication Sig Dispensed Refills Start Date End Date Status fenofibrate (TRICOR) tablet 145 mg Take 1 tablet (145 mg total) by mouth daily. 0 04/15/2021 Active glucose blood (FREESTYLE LITE) test strip TEST BLOOD SUGAR THREE TIMES DAILY 0 04/05/2021 Active insulin glargine (Lantus SoloStar) 100 UNIT/ML injection Inject 50 Units under the skin 2 (two) times a day. 50 units AM and 50 units PM pcp note 0 08/04/2019 Active Lancets (freestyle) lancets 1 each by Does not apply route. 0 09/05/2015 Active Insulin Pen Needle 30G X 8 MM MISC 1 Device. 0 05/26/2017 Active metFORMIN (GLUCOPHAGE) tablet 1000 mg Take 1 tablet (1,000 mg total) by mouth every morning with breakfast. 0 06/20/2019 Active testosterone (ANDROGEL) gel 1% (50 mg testosterone /5 g gel) APPLY 1 PACKET TO SKIN EVERY DAY 0 07/30/2020 Active tamsulosin (FLOMAX) 0.4 MG CAPS Take 1 capsule (0.4 mg total) by mouth every evening. 0 08/13/2020 Active valsartan-hydroCHLOR Othiazide (DIOVAN HCT) tablet 160-25 mg Take 1 tablet by mouth. 0 10/12/2015 Active sildenafil (VIAGRA) 100 MG tablet PLEASE SEE ATTACHED FOR DETAILED DIRECTIONS 0 06/27/2022 Active acetaminophen (TYLENOL) 325 MG tablet Take 2 tablets (650 mg total) by mouth every 6 (six) hours as needed for pain. 0 Active Multiple Vitamin (MULTI VITAMIN DAILY PO) Take by mouth. 0 Active aspirin EC 81 MG tablet Take 1 tablet (81 mg total) by mouth daily. 30 tablet 0 10/27/2023 Active ezetimibe (ZETIA) tablet 10 mg Take 1 tablet (10 mg total) by mouth. 0 08/04/2019 Active ibuprofen 600 MG tablet TAKE 1 TABLET BY MOUTH THREE TIMES A DAY NEEDED FOR PAIN 0 02/17/2024 Active chlorhexidine (PERIDEX) 0.12 % solution RINSE WITH 1/2 OUNCE BY MOUTH TWICE A DAY DIRECTED. 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 ding hip 02/05/2024 02/05/2024 ARISTIDES-inhibitor cough 02/05/2024 02/05/2024 Diabetes mellitus with insulin therapy 02/05/2024 Lumbar facet arthropathy 02/01/2024 Diabetes mellitus with nephropathy 01/15/2024 03/22/2024 CKD stage 3 secondary to diabetes 01/15/2024 03/22/2024 Elective surgery 10/20/2023 CKD stage G3b/A1, GFR 30-44 and albumin creatinine ratio <30 mg/g 10/06/2023 02/05/2024 History of diabetes mellitus 09/02/2022 Spondylolysis 09/02/2022 02/05/2024 Overview: routine health care administrator, uses an inversion table Balance problem 07/21/2022 Lumbar spondylosis 07/21/2022 Erectile dysfunction 01/02/2022 02/05/2024 Thoracic spinal stenosis 12/20/2021 024 Lumbosacral pain 09/27/2021 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 06/17/2021 02/05/2024 Overview: 3.9 cm on echo 05/2021; reassess in 1 year Class 2 severe obesity with serious comorbidity and body mass index (BMI) of 36.0 to 36.9 in adult 11/03/2018 02/05/2024 Lumbar radiculitis 05/31/2018 02/05/2024 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 test 10/08/2015 02/05/2024 BPH (benign prostatic hyperplasia) 08/22/2015 02/05/2024 Type 2 diabetes, uncontrolled, with renal manife station 08/21/2015 02/05/2024 Esophageal reflux 01/03/2015 02/05/2024 Seroma complicating a procedure 10/09/2014 02/05/2024 Mass of thigh 09/06/2014 02/05/2024 Obesity (BMI 30-39.9) 09/04/2014 02/05/2024 History of malignant melanoma of skin 08/27/2012 02/05/2024 Overview: 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 Breslow 0.25 mm Sees derm yearly for f/u CSE Hyperlipidemia 09/16/2011 02/05/2024 HTN (hypertension) 09/16/2011 02/05/2024 Hypotestosteronism 09/16/2011 02/05/2024 Family History Medical History Relation Name Comments Heart disease Father Arthritis Mother Relation Name Status Comments Father Mother Social History Tobacco Use Types Packs/Day Years Used Date Smoking Tobacco: Former Cigarettes Smokeless Tobacco: Never Tobacco Cessation:Counseling Given: Not Answered Comments:Quit 60 yrs ago Alcohol Use Standard Drinks/Week Comments Not Currently 0 (1 standard drink = 0.6 oz pur e alcohol) never Sex and Gender Information Value Date Recorded Sex Assigned at Male 10/08/2023 4:14 PM EDT Gender Identity Male 10/08/2023 4:14 PM EDT Sexual Orientation Straight 10/20/2023 9: 07 AM EDT Job Start Date Occupation Industry Not on file Not on file Not on file Last Filed Vital Signs Vital Sign Reading Time Taken Comments Blood Pressure 103/63 03/29/2024 12:00 PM EDT Pulse 56 03/29/2024 12:00 PM EDT Temperature 36.8 C (98.2 F) 03/29/2024 10:47 AM EDT Respiratory Rate 13 03/29/2024 12:00 PM EDT Oxygen Saturation 95% 03/29/2024 12:00 PM EDT Inhaled Oxygen Concentration - - Weight 113.4 kg (250 lb) 03/25/2024 10:33 AM EDT Height 182.9 cm (6') 03/25/2024 10:33 AM EDT Body Mass Index 33.91 03/25/2024 10:33 AM EDT Plan of Treatment Health Maintenance Due Date Last Done Comments Hepatitis C Screening 1945 Depression Screening 1958 BMI Counseling 1964 Preventative Health Evaluation 1964 Fall Risk Assessment 08/27/2011 RSV Adult > 60+ Yrs or (1 - 1-dose 75+ series) 2021 DTap / Tdap / Td (2 - Td or Tdap) 08/23/2024 08/23/2014, 01/13/2013 COVID-19 Vaccine ( season) 2025 09/22/2021, 03/22/2021, 09/24/2020, Additional history exists Influenza Vaccine (#1) 2025 3, 03/27/2022, 03/27/2022, Additional history exists Pneumococcal Vaccine Completed 06/04/2016, 04/26/20 14 Shingrix-Zoster Vaccine Completed 04/04/2022, 04/02 Hepatitis B Vaccines Aged Out No long er eligible based on patient's age to complete this topic RSV Ped < 20 months Aged Out No longe r eligible based on patient's age to complete this topic Medical Devices Implanted Type Area Auto Body Detailer Device Identifier Shelf Expiration Date Model / Serial / Lot Surgiflo Hemostatic Matrix [facility] [id number] - [id number] Implanted:Qty : 2 on 10/20/2023 by Jai Petty MD at [facility] Hemostatic Agent Posterior: Spine Thoracic [employer] 04/14/2025 [id number] / / [id number] Putty Vesuvius 100 5ml Stry-K2m [id number] - [id number] Implanted:Qty : 1 on 10/20/2023 by Jai Petty MD at [facility] Posterior: Spine Thoracic [employer] 06/14/2026 [id number] 50DP / [id number] / [id number] Screw Spnl Poly 5.5x45mm Stry-K2m [id number] - [id number] Implanted:Qty : 6 on 10/20/2023 by Jai Petty MD at [facility] Med Posterior: Spine Thoracic [employer] [id number] 45 / / Screw Set Colver Stry-K2m [id number] - [id number] Implanted:Qty : 6 on 10/20/2023 by Jai Petty MD at [facility] and [facility] Posterior: Spine Thoracic [employer] 2901-100 01 / / Pancho Spnl Str [id number] Stry-K2m [id number] - [id number] Implanted:Qty : 1 on 10/20/2023 by Jai Petty MD at [facility] and Med Posterior: Spine Thoracic [employer] [id number] / / Advance Directives For more information, please contact: [phone] Latest Code Status on File Code Status Date Activated Date Inactivated Comments Full Code 10/20/2023 4:01 PM 10/23/2023 7:12 PM This c ode status was ascertained in the following way: discussion with patient . Code Status History Code Status Date Activated Date Inactivated Comments Full Code 10/20/2023 9:32 AM 10/20/2023 4:01 PM This co de status was ascertained in the following way: discussion with patient . Care Teams Physician/Allergy/Immunology Relationship Specialty Start Date End Date Neelima Bentley MD PCP - General Internal Medicine 09/24/23
--- OUTSIDE RECORDS SUMMARY | 2025-05-16 10:17 | XMS_ITS | Clinical Summary ---
Author Organization [facility], Address [address] [address] Phone Care Team Providers Care Public Housing Manager Name Role Phone Neelima Bentley MD Primary Care Provider [phone] Allergies Active Allergy Reactions Criticality Noted Date Comments Statins Other (see comments) 12/17/2021 Other Reaction(s): muscle cramping , Other (See Comments) Cramps Other reaction(s): Other (See Comments) Outside Source Comment: Cramps Cramps Cramps Outside Source Comment: Cramps Cramps Cramps Medications aspirin 81 MG chewable tablet Chew 81 mg Act mini ezetimibe (ZETIA) 10 MG tablet Take 1 tablet by mouth 1 (one) time each day 0 Active fenofibrate (TRICOR) 145 MG tablet Take 145 mg by mouth 1 (one) time each day Active Lantus SoloStar 100 UNIT/ML injection INJECT 60 UNITS INTO THE SKIN 2 TIMES DAILY. Active metFORMIN (GLUCOPHAGE) 1000 MG tablet TAKE 1 TABLET BY MOUTH TWICE A DAY W/MEALS 0 Active sildenafil (VIAGRA) 100 MG tablet PLEASE SEE ATTACHED FOR DETAILED DIRECTIONS 2 Active tamsulosin (FLOMAX) 0.4 MG 24 hr capsule TAKE 1 CAPSULE BY MOUTH 30 MINS AFTER SAME MEAL EVERY DAY. Active SITagliptin (Januvia) 50 MG tablet Take 1 tablet (50 mg total) by mouth 1 (one) time each day 30 tablet 11 5 08/02/19 26 Active valsartan (DIOVAN) 160 MG tablet Take 1 tablet (160 mg total) by mouth 1 (one) time each day 90 tablet 3 5 10/12/19 26 Active Active Problems Problem Noted Date Diagnosed Date Vitamin D deficiency 10/27/2024 Anemia in chronic kidney disease 06/02/2024 Stage 3b chronic kidney disease 01/15/2024 Diabetes mellitus 01/15/2024 Renal disorder due to type 2 diabetes mellitus 0 08/21/2015 Hypertensive disorder 09/16/2011 Immunizations Immunization Administration Dates Next Due Hepatitis A 09/05/2015,08/29/2015,08/23/2014 Influenza, MDCK, PF, Quadrivalent 07/16/2018 Pfizer SARS-COV-2 03/22/2021,09/24/2020,09/04/19 Pneumococcal Conjugate 13-Valent 06/04/2016 Pneumococcal Polysaccharide 04/26/2014 Shingrix 04/04/2022,04/02/2021 Td, Unspecified 01/13/2013 Tdap 08/23/2014 Yellow Fever 08/23/2014 Social History Tobacco Use Types Packs/Day Years Used Date Smoking Tobacco: Never Assessed Sex and Gender Information Value Date Recorded Sex Assigned at Male 05/26/2024 9:54 AM EST Legal Sex Male 11:11 AM EDT Gender Identity Male 05/26/2024 9:54 AM EST Sexual Orientation Straight 05/26/2024 9: 54 AM EST Plan of Treatment Upcoming Encounters Date Type Department Care Team (Late st Contact Info) Description 06/29/2025 9:00 AM EST Office Visit [facility] EDUIN MENDEZ [address] [place] [phone] Juan Luis Martínez MD [address] [place] [address] [place] [address] Health Maintenance Due Date Last Done Comments Diabetes: Ophthalmology Exam 04/13/2024 Diabetes: Pedal Pulse Checked 04/13/2024 Diabetes: Sensory Foot Exam 04/13/2024 Diabetes: Visual Foot Exam 04/13/2024 Diabetes: Hemoglobin A1C 01/05/2025 10/06/2024 Influenza Vaccine (#1) 2025 07/16/2018 Pneumococcal Vaccine: 50+ Years Completed 06/04/2016, 04/26/2014 Hepatitis B Vaccine Aged Out No longe r eligible based on patient's age to complete this topic Procedures Procedure Name Priority Date/Time Associated Diagnosis Comments HEMOGLOBIN A1C Routine 10/06/2024 2:13 PM EDT Renal disorder due to type 2 diabetes mellitus <Other diabetic kidney complication> (HCC) from Last 3 Months or Most Recently Relevant to Health Maintenance Results * (ABNORMAL) Hemoglobin A1c (10/06/2024 2:13 PM EDT) Hemoglobin A1C 6.3(H) 4.8 - 5.6 % [facility] [place] Comment: Prediabetes: 5.7 - 6.4 Diabetes: >6.4 Glycemic control for adults with diabetes: <7.0 Blood specimen (specimen) Venous blood / Unknown 10/06/2024 2:13 PM EDT 10/06/2024 us Juan Luis Martínez MD LAB BLOOD ORDERABLES Final Resul t [facility] [address] [place] [phone] from Last 3 Months or Most Recently Relevant to Health Maintenance Insurance [facility] Care Teams Public Housing Manager Relationship Specialty Start Date End Date Neelima Bentley MD [facility] [place] [address] PCP - General Internal Medicine 04/11/24
--- OUTSIDE RECORDS SUMMARY | 2025-05-16 10:17 | XMS_ITS | Data Portability ---
Author Organization [place] [facility] Asha Ly [place] Address [address] [place] [address] Care Team Providers Care Grocery Worker Name Role Phone NAI VAZQUEZ Primary Care Provider NAI VAZQUEZ Referring Provider MARI CONNOLLY Primary Care Provider [phone] Assessment Encounter Date Assessment Date Assessment LastModified by Organization Details LastModified Time 03/10/2023 03/10/2023 77-year-old male with upper lumbar and thoracic pain as well as chronic low back with degenerative disc disease at L5-S1 and thoracic stenosis returns. He is equivocal as to how he is doing. He states his gait is slightly worse but about the same his mid back pain is somewhat worse his low back pain is stable. He has no lower extremity pain. Physical examination: He can toe and heel walk he has no lower extremity or upper extremity weakness manual muscle testing he has no tension sign He has no Washington's. He is not hyperreflexic his plantar reflexes are downgoing he has no clonus he has a negative Romberg's. I reviewed his MRI he has moderate to severe stenosis with left-sided cord compression at T11-12 as documented by his [facility] MRI on August 12, 2022. Once again we discussed the diagnosis natural history and treatment options. If he were not worsening I would continue to observe him. I would not be inclined to operate on his lumbar spine. In that he states he is worsening I believe he should move forward with a repeat MRI and thoracic laminectomy. He understands that his perception of gait disturbance is a better measure of his progression then my physical examination. He understands that quite frequently myelopathy does not result in linear decline but stepwise fashion. At present despite reviewing the surgical intervention in great detail as well as the recovery and the risks he does not want to proceed. He prefers to follow-up. He suggested 6 months but I have encouraged him to follow-up in 3 months or sooner if he worsens. This encounter required over 30 minutes of time including chart review, preparation, and documentation, face time with the patient as well as review of other documents and studies. [email or web address] Not available 03/10/2023 09:38:08 Plan of Treatment Reminders Order Date Submit Date Provider Last Modified By Organization Details Last Modified Time Details Appointments None record ed. Lab None record ed. Referral None record ed. Procedures None record ed. Surgeries None record ed. Imaging None record ed. Medication Orders None record ed. Patient TargetsNo targets recorded. Patient InstructionsNo instructions recorded. Reason for Referral None Reported. 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 Formattin g of this note might be different from the original. 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 Breslow 0.25 mm Sees derm yearly for f/u CSE Not Available [facility] 5 23:29:35 Mass of lower limb 173882613 Active 2014 Mass of thigh Not Available [facility] 23:[facility]:39 Seroma 473165559 Active 2014 Seroma complicat ing a procedure Not Available [facility] 23:29:32 Gastroeso phageal reflux disease 286016588 Active 2014 Esophagea l reflux Not Available [facility] 09/22/202 5 23:29:32 Renal disorder due to type 2 diabetes mellitus 932423763 Active 2015 Type 2 diabetes, uncontrol led, with renal manifesta tion Not Available [facility] 5 23:29:34 Benign prostatic hyperplas ia 271375602 Active 2015 BPH (benign prostatic hyperplas ia) Not Available [facility] 5 23:29:38 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 Lack of immunity to hepatitis B virus demonstra tammy by serologic test Not Available [facility] 5 23:29:41 Lumbar radiculit is 32095906916 831684 Active 2017 Lumbar radiculit is Not Available [facility] 5 23:29:38 Severe obesity 65791385597 104 Active 2018 Class 2 severe obesity with serious comorbidi ty and body mass index (BMI) of 36.0 to 36.9 in adult Not Available [facility] 5 23:29:36 Acquired dilatatio n of ascending aorta and aortic root 313386618 Active 2021 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 - Overview: Formattin g of this note might be different from the original. Formattin g of this note might be different from the original. 3.9 cm on echo 05/2021; reassess in 1 year Not Available [facility] 5 23:29:33 Backache 501535923 Active 2021 Lumbosacr al pain Not Available [facility] 5 23:29:37 Erectile dysfuncti on 042722624 Active 2021 Erectile dysfuncti on Not Available [facility] 5 23:29:39 Impairmen t of balance 754354890 Active 2022 Balance problem Not Available [facility] 5 23:29:39 Body mass index 30+ - obesity 386481788 Active 2022 Elías Rich MD [address], [place], [address] , [place] [facility], 3 11:25:30 History of diabetes mellitus 236898141 Active 2022 Elías Rich MD [address], [place], [address] , [place] [facility] 3 11:25:31 Spinal stenosis of thoracic region 43579244 Active 2022 Elías Rich MD [address], [place], [address] , [place] [facility] 3 11:25:33 Low back pain 482305660 Active 2022 Elías Rich MD [address], [place], [address] , [place] [facility], [facility] 3 11:26:18 Lumbar spondylos is 810396659 Active 2022 Elías Rich MD [address], [place], [address] , [place] [facility] 3 11:26:19 Spondylol ysis 578864830 Active 2022 Elías Rich MD [address], [place], [address] , [place] [facility] 3 11:26:20 Chronic kidney disease stage 3 612820851 Active 2023 CKD stage G3b/A1, GFR 30-44 and albumin creatinin e ratio <30 mg/g CKD stage 3 secondary to diabetes Not Available [facility] 5 23:29:40 Patient encounter status 935464171 Active 2023 Elective surgery Not Available [facility] 5 23:29:36 Diabetes mellitus 48932780 Active 2023 Diabetes mellitus with nephropat hy Not Available [facility] 5 23:29:33 Arthropat hy of lumbar facet joint 691131221 Active 2023 Lumbar facet arthropat hy Not Available [facility] 5 23:29:34 Diabetic on insulin 254918842 Active 2023 Diabetes mellitus with insulin therapy Not Available [facility] 23:29:35 Angiotens in-conver ting-enzy me inhibitor adverse reaction 256821223 Active 2023 ARISTIDES-inhib itor cough Not Available [facility] 23:29:36 Malignant melanoma of lower limb 654579484 Active 2023 Malignant melanoma of left lower extremity including hip Not Available [facility] 23:29:37 Lumbar radiculop athy 655051585 Active 2023 Lumbar radiculop athy Not Available [facility] 23:29:35 Renal disorder due to type 1 diabetes mellitus 835276681 Active 2023 Int[employer] ObjectsPr oblemIT: 96741979 - 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 Procedures Surgical History Date Name Laterality Status Provider Name and Address Organization Details Recorded Time [facility]22 11:06:06 foraminotomy completed [facility] [place] [facility], 09/02/2022 11:06:14 Imaging Results None recorded. Procedure Notes None recorded. Medical Equipment None Reported. Allergies No known drug allergies Medications Name Sig Start Date Stop Date Status Note LastModified by Organization Details LastModified Time cyclobenzap rine 10 mg tablet Take 1 tablet (10 mg total) by mouth. 10/22 completed Not Available Not Available Not Available amoxicillin 500 mg capsule PLEASE SEE ATTACHED FOR DETAILED DIRECTION S 2023 active Not Available Not Available Not Avai lable acetaminoph en 325 mg tablet Take 2 tablets (650 mg total) by mouth every 6 (six) hours as needed for pain. active Not Available Not Available No t Available prednisone 20 mg tablet TAKE 3 TABS FOR 3 DAYS, TAKE 2 TABS FOR 3 DAYS, TAKE 1 TAB FOR 3 DAYS active Not Available Not Available No t Available peg-electro lyte solution 420 gram oral solution 10/22 completed Not Available Not Available Not Available aspirin 81 mg tablet,eleanor yed release Take 1 tablet (81 mg total) by mouth daily. 2023 active Not Available Not Available Not Avai lable sildenafil 100 mg tablet PLEASE SEE ATTACHED FOR DETAILED DIRECTION S 2022 active Not Available Not Available Not Avai lable tamsulosin 0.4 mg capsule TAKE 1 CAPSULE BY MOUTH 30 MINS AFTER SAME MEAL EVERY DAY. active Not Available Not Available No t Available gemfibrozil 600 mg tablet TAKE 1 TAB BY MOUTH 2 TIMES DAILY (BEFORE MEALS) 10/22 completed Not Available Not Available Not Available metformin 1,000 mg tablet TAKE 1 TABLET BY MOUTH TWICE A DAY W/MEALS active Not Available Not Available No t Available aspirin 81 mg chewable tablet Chew 1 tablet (81 mg total) by mouth. 10/20 completed Not Available Not Available Not Available lisinopril 10 mg-hydrochl orothiazide 12.5 mg tablet Take 1 tablet by mouth daily. 10/22 completed Not Available Not Available Not Available ibuprofen 600 mg tablet TAKE 1 TABLET BY MOUTH THREE TIMES A DAY NEEDED FOR PAIN 2023 active Not Available Not Available Not Avai lable levofloxaci n 500 mg tablet TAKE 1 TABLET BY MOUTH ONCE ON THE DAY BEFORE PROCEDURE active Not Available Not Available No t Available testosteron e 1 % (25 mg/2.5 gram) transdermal gel packet See Instructi ons, USE 1 PACKET DAILY, # 150 pack/pack et, 0 Refills, Terrykacey ce, 07/01/22 9:20:00 EST, [id number], DX: hypoandro genism, 182.88, cm, 04/15/22 8:49:00 EDT, Height, 121.7, kg, 04/19/21 11:27:00 EDT, Dry Weight 10/22 completed Not Available Not Available Not Available testosteron e 1 % (50 mg/5 gram) transdermal gel packet APPLY 1 PACKET TO SKIN EVERY DAY 2020 active Not Available Not Available Not Avai lable valsartan 160 mg-hydrochl orothiazide 25 mg tablet TAKE 1 TABLET BY MOUTH EVERY DAY active Not Available Not Available No t Available ezetimibe 10 mg tablet Take 1 tablet (10 mg total) by mouth. 03/22 completed Not Available Not Available Not Available ciprofloxac in 0.3 %-dexametha sone 0.1 % ear drops,suspe nsion INSTILL 4 DROPS IN LEFT EAR TWICE A DAY FOR 14 DAYS 10/22 completed Not Available Not Available Not Available chlorhexidi ne gluconate 0.12 % mouthwash RINSE WITH 1/2 OUNCE BY MOUTH TWICE A DAY DIRECTED. DO NOT SWALLOW 2023 active Not Available Not Available Not Avai lable fenofibrate nanocrystal lized 145 mg tablet TAKE 1 TABLET BY MOUTH EVERY DAY active Not Available Not Available No t Available testosteron e 50 mg/5 gram (1 %) transdermal gel APPLY 1 PACKET TO SKIN EVERY DAY active Not Available Not Available No t Available Lantus Solostar U-100 Insulin 100 unit/mL (3 mL) subcutaneou s pen INJECT 60 UNITS INTO THE SKIN 2 TIMES DAILY. active Not Available Not Available No t Available diclofenac 1 % topical gel Apply 1 applicato r topically . 10/22 completed Not Available Not Available Not Available Vitals Date Recorded Body height Body mass index (BMI) Body weight Provider Name and Address Organization Details Last Updated DateTime 09/02/2022 182.88 cm 35.3 kg/m2 088729.02 g Dagmar [place] [facility] 09/02/2022 11:05:07 Date Recorded Body height Body mass index (BMI) Body weight Provider Name and Address Organization Details Last Updated DateTime 03/10/2023 182.88 cm 35.3 kg/m2 291185.02 g Bea Cherry [place] [facility] 03/10/2023 09:13:40 Date Recorded Body weight Body mass index (BMI) Body height Provider Name and Address Organization Details Last Updated DateTime 03/25/2024 681264 g 33.91 kg/m2 182.9 cm Not Available [facility] 03/07/2025 01:02:46 Date Recorded Respiratory rate Heart rate Body temperature Oxygen saturation Systolic And Diastolic Provider Name and Address Organization Details Last Updated DateTime 13 /min 56 /min 98.204 [degF] 95 % 103/63 mm[Hg] Not Available [facility] 5 01:02:47 Social History None recorded. Functional Status Question Answer Note LastModified by Organizat ion Details LastModified Time Do you use any illicit or recreational drugs? No [email or web address] Information not available 09/02/2022 Do you or have you ever used any other forms of tobacco or nicotine? No [email or web address] Information not available 09/02/2022 What is your level of alcohol consumption? None [email or web address] Information not available 09/02/2022 Mental Status None recorded. Family History Relationship Description Onset Age of this Age Resolved Age Notes LastModified by Organization Details LastModified Time Mother Arthritis Not availab le 09/02/2022 11:05:48 Father Heart disease [email or web address] Not available 2022 11:05:57 Medical History Condition Response Diabetes Y Past Encounters Encounter ID Performer Location Encounter Start Date Encounter Closed Date Diagnosis/Indication Diagnosis SNOMED-CT Code Diagnosis ICD10 Code Diagnosis IMO Codes Diagnosis Note [id number] MD NICOLAS Crane [address] [place] [address] 09/02/2022 10:50:16 09/02/2022 11:26:01 History of diabetes mellitus 567191318 Z86.39 Body mass index 30+ - obesity 185074732 Z68.35 We discussed his abdominal obesity as it interacts with his back pain his diabetes. Of course weight control can be helpful. I suggest he talk to his primary care doctor about some of the newer diabetic agents that can help him with weight loss. Spinal ela nosis of thoracic region 27997030 M48.04 Although he has spinal stenosis as outlined on his recent thoracic MRI I do not believe it is critical. His Romberg test today was negative. Despite this I do believe would be worthwhile to watch him serially. If his balance gets worse or he has any symptoms in his legs he will contact aishwarya alvarez y anthonyw e will see him in 6 months for repeat upper motor neuron lesion check Low back pain 846281218 M54.50 We have a long discussion regarding diagnosis natural history and treatment options. More likely than not he is symptomati c with his L5-S1 degenerati ve disc disease and spondyloly sis. He also has disc disease at 2 3. The natural history ultimately is unfavorabl e. He would likely gradually get worse but he is live with it for decades. The pain is a great annoyance but does not particular ly limit what he can do it just limits how intensely or how long he can do the activities . Treatment options include continued stroke forbearanc e with his current care which includes chiropract ic care and caudal injections once or twice a year. We also discussed referral [facility] which for now is deferred. We discussed surgical treatment for back pain. This is discourage ara. Lumbar spondylosis 89622 0009 M47.896 Spondylolysis 720307960 M43.00 [id number] MD NICOLAS Crane [address] [place] [address] 03/10/2023 09:00:17 03/10/2023 09:31:30 Body mass index 30+ - obesity 753432148 Z68.35 We discussed his abdominal obesity as it interacts with his back pain his diabetes. Of course weight control can be helpful. I suggest he talk to his primary care doctor about some of the newer diabetic agents that can help him with weight loss. History of diabetes mellitus 555495581 Z86.39 Low back pain 454118485 M54.50 We have a long discussion regarding diagnosis natural history and treatment options. More likely than not he is symptomati c with his L5-S1 degenerati ve disc disease and spondyloly sis. He also has disc disease at 2 3. The natural history ultimately is unfavorabl e. He would likely gradually get worse but he is live with it for decades. The pain is a great annoyance but does not particular ly limit what he can do it just limits how intensely or how long he can do the activities . Treatment options include continued stroke forbearanc e with his current care which includes chiropract ic care and caudal injections once or twice a year. We also discussed referral [facility] which for now is deferred. We discussed surgical treatment for back pain. This is discourage d. Spinal ela nosis of thoracic region 38102058 M48.04 Although he has spinal stenosis as outlined on his recent thoracic MRI I do not believe it is critical. His Romberg test today was negative. Despite this I do believe would be worthwhile to watch him serially. If his balance gets worse or he has any symptoms in his legs he will contact aishwarya castañeda will see him in 6 months for repeat upper motor neuron lesion check Health Concerns Section Related Observation LastModified by Organization Maribel singletary LastModified Time None Recorded Concern Status LastModified by Organization Details LastModified Time None Recorded Advance Directives Directive None Recorded Payers Insurance Date Sequence Insurance Name Policy Number Policy Martínez Covered Member ID Martínez Member ID Guarantor Name 03/27/2023 1 [employer] - MEDICARE ADVANTAGE PLAN (MEDICARE REPLACEMENT HMO) [id number] Laz Goldstein [id number] Laz Goldstein Notes Date Note Type Note Provider Name and Address Organization Details Recorded Time 3 text/htm l HPI: 77-year-old male with abdominal obesity returns with his Vy to discuss his low back pain. He is noted to have degenerative spondylosis particular at L5-S1 where he has a spondylolysis and L2-3.We were concerned about his balance issues and positive Romberg. He was referred for an MRI thoracic spine performed he had MRI of [place] at [facility] on August 12 of this year. This revealed severe stenosis at T11-12. Today he has no issues with his balance or gait disturbance. He continues to have significant low back pain. This interferes with many of his activities but does not stop him from doing activities. He states he has to do these things less intensely and for shorter periods of time. We also obtained a B12 and folate levels. These were normal. The B12 was 975 (180 through 914) and the folate was greater than 30 (greater than 24).Prior Visit: 2.6.23HPIWillilalit Goldstein is a 76 y.o. male with elevated BMI returns for evaluation. He was here last summer when we wanted to obtain a thoracic MRI for balance disorder. This was denied by his insurance company. He also had back pain.He has been swimming on a regular basis and seeing a chiropractor. His back pain is much improved. He states in the morning its about 3/10. As he gets up and moves about it improves.He does appreciate a balance disorder. This is getting worse. He is increasingly cautious with getting into the river to fish. He has to use a support while stepping over the rocks.He is having no symptoms of cervical myelopathy. He has no problem with fine manipulatives. He is able to make his own flies.Assessment/Plan:SNOMED CT(R)1. Lumbosacral pain BACKACHE2. Lumbar spondylosis LUMBAR SPONDYLOSIS MRI Thoracic Spine Without IV WzkaatzzK37/Folate3. Balance problem IMPAIRMENT OF BALANCE MRI Thoracic Spine Without IV TwldwjmqT33/FolateHe appreciates and increasing difficulty with balance. His lumbar MRI suggested the possibility of thoracic stenosis. He has no upper extremity symptoms.It is quite reasonable that he has spinal cord issues. We will obtain a thoracic MRI to evaluate for compression and B12/folate levels to evaluate for deficiency.His back pain is under good control with the swimming home care rn. Core strengthening and weight control are also useful for back pain.We will follow-up after the scan.Return for an evaluation after the MRI..MD Elías Carbajal MD [address], [place], [address], [place] [facility] 09/02/2022 12:56:20 3 text/htm l results, [id number] by Elías Rich MD, Orthopedic Surgery, history of diabetes mellitusbody mass index 30+ - obesity We discussed his abdominal obesity as it interacts with his back pain his diabetes. Of course weight control can be helpful. I suggest he talk to his primary care doctor about some of the newer diabetic agents that can help him with weight loss.spinal stenosis of thoracic regionAlthough he has spinal stenosis as outlined on his recent thoracic MRI I do not believe it is critical. His Romberg test today was negative.Despite this I do believe would be worthwhile to watch him serially. If his balance gets worse or he has any symptoms in his legs he will contact [facility] immediately otherwise we will see him in 6 months for repeat upper motor neuron lesion checklow back painWe have a long discussion regarding diagnosis natural history and treatment options.More likely than not he is symptomatic with his L5-S1 degenerative disc disease and spondylolysis. He also has disc disease at 2 3.The natural history ultimately is unfavorable. He would likely gradually get worse but he is live with it for decades. The pain is a great annoyance but does not particularly limit what he can do it just limits how intensely or how long he can do the activities.Treatment options include continued stroke forbearance with his current care which includes home care rn and caudal injections once or twice a year. We also discussed referral to [facility] and [place] which for now is deferred.We discussed surgical treatment for back pain. This is discouraged.lumbar spondylosisspondylolysis Elías Rich MD [address], [place], [address], [place] [facility] 03/26/2023 15:18:48
--- OUTSIDE RECORDS SUMMARY | 2025-05-16 10:17 | XMS_ITS | Encounter Summary ---
Author Organization [facility] [place], Address [address] [place] [address] Phone Care Team Providers Care Automatic Car Wash Attendant Name Role Phone Neelima Bentley MD Primary Care Provider [phone] Encounter Details Date Type Department Care Team (Late st Contact Info) Description 08/29/2024 Documentation Only [facility] [address] [place] [address] Louann Hdez [address] [place] [phone] Social History Tobacco Use Types Packs/Day [...] Visit [facility] Buster MENDEZ [address] [place] [phone] Juan Luis Martínez MD [address] [place] [address] [place] [phone] documented as of this encounter Visit Diagnoses Not on filedocumented in this encounter Care Teams Automatic Car Wash Attendant Relationship Specialty Start Date End Date Neelima Bentley MD [address] [place] [address] PCP - General Internal Medicine 04/11/24 documented as of this encounter
--- OUTSIDE RECORDS SUMMARY | 2025-05-16 10:17 | XMS_ITS | Encounter Summary ---
Author Organization [facility], Address [address] [place] [address] Phone Care Team Providers Care Die Stamping Press Operator Name Role Phone Neelima Bentley MD Primary Care Provider [phone] Encounter Details Date Type Department Care Team (Late st Contact Info) Description 06/02/2024 Documentation Only [facility] [address] [place] [address] Leeanna Tao [address] [place] [phone] Social History Tobacco Use Types Packs/Day [...] Visit [facility] Buster MENDEZ [address] [place] [phone] Juan Luis Martínez MD [address] [place] [address] [place] [phone] documented as of this encounter Visit Diagnoses Not on filedocumented in this encounter Care Teams Die Stamping Press Operator Relationship Specialty Start Date End Date Neelima Bentley MD [address] [place] [address] PCP - General Internal Medicine 04/11/24 documented as of this encounter
--- OUTSIDE RECORDS SUMMARY | 2025-05-16 10:17 | XMS_ITS | Clinical Summary ---
Author Organization [facility] Address [address] [place] [address] Phone Care Team Providers Care Vertical Boring Mill Operator Name Role Phone Neelima Bentley MD Primary Care Provider Allergies Active Allergy Reactions Criticality Noted Date Comments Aikeezy-Vtz-Cuv Reductase Inhibitors 12/18/2021 Other Reaction(s): Other (See Comments) Cramps Medications acetaminophen (TYLENOL) 325 mg tablet Take 2 tablets (650 mg total) by mouth every 6 hours as needed. Active aspirin 81 mg EC tablet Take 1 tablet (81 mg total) by mouth 1 (one) time each day. 4 Active ezetimibe (ZETIA) 10 mg tablet Take 1 tablet (10 mg total) by mouth 1 (one) time each day. 0 Active fenofibrate (TRICOR) 145 mg tablet Take 1 tablet (145 mg total) by mouth 1 (one) time each day. 1 Active blood sugar diagnostic (FreeStyle Lite Strips) test strip TEST BLOOD SUGAR THREE TIMES DAILY 1 Active UNABLE TO FIND Insulin Pen Needle 30G X 8 MM MISC Inject 1 Device as directed 2 times daily. 7 Active FREESTYLE LANCETS MISC 1 each by Not Applicable route. 6 Active insulin glargine (Lantus Solostar U-100 Insulin) 100 unit/mL (3 mL) injection pen Inject 60 Units under the skin 2 (two) times a day. 65 units AM and 60 units PM pcp note 0 Active multivitamin tablet Take by mouth. Activ e sildenafiL (VIAGRA) 100 mg tablet PLEASE SEE ATTACHED FOR DETAILED DIRECTIONS 2 Active tamsulosin (FLOMAX) 0.4 mg 24 hr capsule TAKE 1 CAPSULE BY MOUTH 30 MINS AFTER SAME MEAL EVERY DAY. 1 Active testosterone 50 mg/5 gram (1 %) gel APPLY 1 PACKET TO SKIN EVERY DAY 1 Active valsartan-hydro CHLOROthiazide (DIOVAN-HCT) 160-25 mg per tablet Take 1 tablet by mouth. 6 Active amoxicillin (AMOXIL) 500 mg capsule PLEASE SEE ATTACHED FOR DETAILED DIRECTIONS 4 Active chlorhexidine (PERIDEX) 0.12 % solution RINSE WITH 1/2 OUNCE BY MOUTH TWICE A DAY DIRECTED. DO NOT SWALLOW 4 Active cyclobenzaprine (FLEXERIL) 10 mg tablet Take 1 tablet (10 mg total) by mouth 3 (three) times a day if needed. 2 Active diclofenac (VOLTAREN) 1 % topical gel Apply 1 applicator topically. 2 Active gemfibroziL (LOPID) 600 mg tablet TAKE 1 TAB BY MOUTH 2 TIMES DAILY (BEFORE MEALS) 1 Active lisinopril-hydr oCHLOROthiazide (PRINZIDE,ZESTO RETIC) 10-12.5 mg per tablet See Instructions, TAKE 1 TABLET BY MOUTH EVERY DAY, # 90 tablet, 1 Refills, Maintenance, 09/15/22 18:51:00 EDT, [facility]/pharmacy #[id number], 90, TAKE 1 TABLET BY MOUTH EVERY DAY, 182.88, cm, 07/17/22 8:10:00 EST, Height, 121.7, kg, 04/19/21 11:27:00 EDT, Dry W... 2 Active metFORMIN XR (GLUCOPHAGE-XR) 500 mg 24 hr tablet Take 1 tablet (500 mg total) by mouth. 2 Active metFORMIN (GLUCOPHAGE) 1,000 mg tablet Take 1 tablet (1,000 mg total) by mouth. 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 ([facility]) 06/17/2021 Overview (02/09/2024): 3.9 cm on echo 05/2021; reassess in 1 year Lumbar radiculitis 05/31/2018 BPH (benign prostatic hyperplasia) 08/22/2015 Esophageal reflux 01/03/2015 Mass of thigh 09/06/2014 Obesity (BMI 30-39.9) 09/04/2014 Hyperlipidemia 09/16/2011 Hypertension 09/16/2011 Hypotestosteronism 09/16/2011 Low back pain Lumbar facet arthropathy Malignant melanoma of left l ower extremity including hip ([facility], [facility] V28) ARISTIDES-inhibitor cough CKD stage G3b/A1, GFR 30-44 and albumin creatinine ratio <30 mg/g ([facility], [facility] V28) Class 2 severe obesity with serious comorbidity and body mass index (BMI) of 36.0 to 36.9 in adult Diabetes mellitus with insul in therapy ([facility] V[facility], [facility] V28) Spondylolysis Thoracic spinal stenosis 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, not stated as uncontrolled(250.41) ([facility], [facility] V28) Immunizations Immunization Administration Dates Next Due Hepatitis A Adult (Havrix; V aqta) 19yo and older 09/05/2015,08/29/2015,08/23/2014 Influenza Quadravalent, MDCK , 0.5ml, preservative free (Flucelvax) 6mo and older 07/16/2018 Influenza trivalent, with pr eservative (Fluzone; Afluria) 6mo and older 02/24/2023,03/27/2022,03/22/2021,03/12,06/04/2016,04/26/2014,05/05/2013 Pfizer (ages 12 & older) CATERINA S-CoV-2 COVID-19, mRNA, LNP-S, bhaskar-sucrose, preservative free 09/22/2021 Pfizer SARS-CoV-2 COVID-19, mRNA, LNP-S, preservative free 09/22/2021,09/24/2020,09/03/2020 Pneumococcal conjugate 13 va lent (Prevnar 13, PCV13) 2mo and older 06/04/2016 Pneumococcal polysaccharide 23 valent (Pneumovax 23) 2yo and older 04/26/2014 Td, Unspecified 01/13/2013 Tdap Tetanus diptheria acell ular pertussis (Boostrix; Adacel) 7yo and older 08/23/2014 Typhoid VICPS (Typhim Vi) 2y o and older 08/23/2014 Yellow Fever (YF-VAX) 9mo and older 08/23/2014 Zoster recombinant (Shingrix ) 19yo and older 04/04/2022,04/02/2021 Surgical History Surgery Date Site/Laterality Comments CHOLECYSTECTOMY 1994 PROCEDURE: LAPAROSCOPY, CHOLECYSTECTOMY OTHER SURGICAL HISTORY 1997 PROCEDURE: [place] [facility] FACETECTOMY&FORAMOT 1 VRT SGM EA ADDL SGM; COMMENT: C5-6, done at [facility] TONSILLECTOMY 1952 PROCEDURE: HISTORICAL TONSILLECTOMY OTHER SURGICAL HISTORY 2009 PROCEDURE: NUCLEAR STRESS TEST; COMMENT: normal OTHER SURGICAL HISTORY 2009 PROCEDURE: [place] ECHO TRANSTHORAC R-T 2D W/WO M-MODE REC COMP; COMMENT: normal LEG SURGERY 1961 PROCEDURE: HISTORICAL LEG SURGERY; COMMENT: left leg fracture OTHER SURGICAL HISTORY 2004 PROCEDURE: HISTORICAL MELANOMA; COMMENT: Malignant melanoma - 2004 right ear Breslow 0.25 mm Sees derm yearly for f/u CSE COLONOSCOPY 2004 PROCEDURE: HISTORICAL COLONOSCOPY; COMMENT: [place], [place]. Diminutive hyperplastic rectal polyps x2. COLONOSCOPY 2009 PROCEDURE: HISTORICAL COLONOSCOPY; COMMENT: [facility]. Diminutive 2 mm rectal polyp x1. COLONOSCOPY 08/16/2020 PROCEDURE: HISTORICAL COLONOSCOPY; COMMENT: Negative screening examination, no colon cancer screening indicated for 10 years. CHOLECYSTECTOMY PROCEDURE:CHOLECYSTECTOMY BACK SURGERY PROCEDURE:BACK SURGERY;COMMENT:foraminotomy C5-6 OTHER SURGICAL HISTORY 10/20/2023 Posterior PROCEDURE:POSTERIOR FUSION THORACIC SPINE;COMMENT:Procedure: L10-12 FUSION SPINE THORACIC POSTERIOR 2 LEVELS; Surgeon: Jai Petty MD; Location: [facility]); Service: Spine; Laterality: Posterior; LAMINECTOMY POSTERIOR THORACIC / LUMBAR 10/20/2023 Posterior PROCEDURE:LAMINECTOMY POSTERIOR THORACIC / LUMBAR;COMMENT:Procedure: T10-T12 LAMINECTOMY POSTERIOR THORACIC / LUMBAR; Surgeon: Jai Petty MD; Location: [facility]); Service: Spine; Laterality: Posterior; THORACIC LAMINECTOMY 10/20/2023 Posterior PROCEDURE:THORACIC LAMINECTOMY;COMMENT:Procedure : LAMINECTOMY POSTERIOR THORACOLUMBAR 2 LEVELS; Surgeon: Jai Petty MD; Location: [facility]); Service: Spine; Laterality: Posterior; AUTOGRAFT/SPINE SURGERY 10/20/2023 N/A PROCEDURE:AUTOGRAFT/SPINE SURGERY;COMMENT:Procedure: AUTOGRAFT BONE SPINE; Surgeon: Jai Petty MD; Location: [facility]); Service: Spine; Laterality: N/A; LUMBAR EPIDURAL INJECTION 02/09/2024 N/A PROCEDURE:LUMBAR EPIDURAL INJECTION;COMMENT:Procedure: LOCAL- LUMBAR MEDIAL BRANCH BLOCK #3; Surgeon: Varghese Tello MD; Location: [facility]; Service: Neurology; Laterality: N/A; LOCAL/C-ARM PLEASE SCHEDULE PATIENT FOR 1:30PM FOR A TOTAL OF 20 MINS LUMBAR EPIDURAL INJECTION 03/29/2024 N/A PROCEDURE:LUMBAR EPIDURAL INJECTION;COMMENT:Procedure: MAC- CAUDAL EPIDURAL STEROID INJECTION; Surgeon: Varghese Tello MD; Location: [facility]; Service: Neurology; Laterality: N/A; MAC/C-ARM PLEASE SCHEDULE PATEINT FOR 12:40PM FOR A TOTAL OF 30 MINS Medical History Medical History Date Comments Spondylolisthesis DX:Spondylolis thesis; COMMENT: routine care manager, uses an inversion table Diabetes mellitus type 2, uncontrolled 09/16/2011 DX:Diabetes mellitus type 2, uncontrolled Hypertension 09/16/2011 DX:Hypertension Hyperlipidemia 09/16/2011 DX:Hyperlipidemi a Hypotestosteronism 09/16/2011 DX:Hypotestos teronism Obesity (BMI 30-39.9) 09/04/2014 DX:Obesity (BMI 30-39.9) Chronic renal disease, stage III ([facility], [facility]) 01/03/2015 DX:Chronic renal disease, s tage III ([facility]) Esophageal reflux 01/03/2015 DX:Esophageal reflux Mass of thigh 09/06/2014 DX:Mass of thigh Seroma complicating a procedure 10/09/2014 DX:Seroma complicating a procedure Type 2 diabetes, uncontrolle d, with renal manifestation 08/21/2015 DX:Type 2 diabetes, uncontro lled, with renal manifestation BPH (benign prostatic hyperplasia) 08/22/2015 DX:BPH (benign prostatic hyperplasia) CKD (chronic kidney disease) stage 3, GFR 30-59 ml/min ([facility], [facility]) 06/26/2016 DX:CKD (chronic kidney disea se) stage 3, GFR 30-59 ml/min ([facility]) History of malignant melanoma of skin 08/27/2012 DX:History of malignant melanoma of skin; COMMENT: Malignant melanoma - 2004 right ear Breslow 0.25 mm Sees derm yearly for f/u CSE Diabetes mellitus ([facility] V 24, [facility] V28) DX:Diabetes mellitus ([facility]);COMMENT:Type II Osteoarthritis DX:Osteoarthriti s Hypertension DX:Hypertension Hyperlipidemia DX:Hyperlipidemi a GERD (gastroesophageal reflux disease) DX:GERD (gastroesophageal reflux disease) 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 ([facility], [facility] V[facility]) DX:CKD stage 3 secondary to diabetes ([facility]) Lumbar spondylosis DX:Lumbar spo ndylosis;COMMENT:pcp note Thoracic spinal stenosis DX:Thor acic spinal stenosis;COMMENT:pcp note HL (hearing loss) DX:HL (hearing loss);COMMENT:bev hearing aides Diabetes mellitus, type II ( [facility], [facility] V[facility]) DX:Diabetes mellitus, type I I ([facility]) Family History Medical History Relation Name Comments Heart attack Father Heart disease Father Arthritis Mother Melanoma Other cousin Heart attack Paternal Grandfather Colon cancer Neg Hx Diabetes Neg Hx Hypertension Neg Hx Relation Name Status Comments Father Maternal Grandfather (Age 80) [place] Maternal Grandmother (Age 95) Mother Other Paternal Grandfather (Age 50) [place] Social History Tobacco Use Types Packs/Day Years Used Date Smoking Tobacco: Former Smokeless Tobacco: Never Alcohol Use Standard Drinks/Week Comments Not Currently 0 (1 standard drink = 0.6 oz pur e alcohol) Sex and Gender Information Value Date Recorded Sex Assigned at Not on file Legal Sex Male 1:44 PM EST Gender Identity Not on file Sexual Orientation Not on file Obstetrics History Last Filed Vital Signs Vital Sign Reading Time Taken Comments Blood Pressure 148/72 12/07/2023 1:08 PM EDT Pulse 73 12/07/2023 1:08 PM EDT Temperature - - Respiratory Rate - - Oxygen Saturation - - Inhaled Oxygen Concentration - - Weight 113 kg (250 lb) 03/25/2024 10:33 AM EDT Height 182.9 cm (6') 03/25/2024 10:33 AM EDT Body Mass Index 33.91 03/25/2024 10:33 AM EDT Plan of Treatment Health Maintenance Due Date Last Done Comments Diabetes: Annual Foot Exam 1956 Diabetes: Annual Retina Eye Exam 1955 RSV Immunization Adult Patients (1 - 1-dose 75+ series) 2021 Cholesterol Screening (Lipid Panel) 05/24/2022 Falls Risk Assessment 05/24/2022 Hepatitis C Screening 05/24/2022 Medicare Annual Wellness Visit 05/24/2022 Social Influencers of Health Screening 05/24/2022 Diabetes: Annual Urine Albumin-Creatinine Ratio (uACR) 05/31/2022 Depression Screening 06/15/2024 DTaP,Tdap,and Td Vaccines (3 - Td or Tdap) 08/23/2024 08/23/2014, 01/13/2013 Diabetes: Annual GFR (Glomerular Filtration Rate) 10/22/2024 10/23/2023, 10/23/2023, 10/23/2023, Additional history exists Hypertension/CHF/CAD Annual BMP Blood Test 10/22/2024 10/23/2023, 10/23/2023, 10/23/2023, Additional history exists COVID-19 Vaccine ( season) 2025 09/22/2021, 09/22/2021, 03/22/2021, Additional history exists Influenza Vaccine (#1) 2025 , 03/27/2022, 03/22/2021, Additional history exists Diabetes: Blood Sugar Control Test (HGBA1C) 04/07/2025 10/06/2024, 10/06/2024 Hepatitis A Vaccines Aged Out 09/05/2015, 08/29/2015, 08/23/2014 No longer eligible based on patient's age to complete this topic Pneumococcal Vaccine: 50+ Years Completed 06/04/2016, 04/26/2014 Zoster Vaccines Completed 04/04/2022, 04/02/2021 HIB Vaccines Aged Out No longer eligi ble based on patient's age to complete this topic HPV Vaccines Aged Out No longer eligi ble based on patient's age to complete this topic Hepatitis B Vaccines Aged Out No long er eligible based on patient's age to complete this topic IPV Vaccines Aged Out No longer eligi ble based on patient's age to complete this topic MMR Vaccines Aged Out No longer eligi ble based on patient's age to complete this topic Meningococcal ACWY Vaccine Aged Out N o longer eligible based on patient's age to complete this topic Meningococcal B Vaccine Aged Out No l onger eligible based on patient's age to complete this topic RSV Immunization Patients Under 20 months Aged Out No longer eligible based on patient's age to complete this topic Varicella Vaccines Aged Out No longer eligible based on patient's age to complete this topic Medical Devices Implanted Type Area Director Of Valuation Device Identifier Shelf Expiration Date Model / Serial / Lot Surgiflo Hemostatic Matrix [facility] [id number] Implanted:Qty: 2 on 10/20/2023 by Jai Petty MD Implants N/A: Spine Thoracic [facility] [employer] 04/14/2025 [id number] / / [id number] Putty Vesuvius 100 5ml Stry-K2m [id number] - [id number] Implanted:Qty: 1 on 10/20/2023 by Jai Petty MD N/A: Spine Thoracic [employer] 06/14/2026 [id number] / [id number] / Screw Spnl Poly 5.5x45mm Stry-K2m [id number] Implanted:Qty: 6 on 10/20/2023 by Jai Petty MD N/A: Spine Thoracic [employer] [id number] / / Screw Set [place] Stry-K2m [id number] Implanted:Qty: 6 on 10/20/2023 by Jai Petty MD N/A: Spine Thoracic [employer] [id number] 1 / / Pancho Spnl Str [id number] Stry-K2m [id number] Implanted:Qty: 1 on 10/20/2023 by Jai Petty MD N/A: Spine Thoracic [employer] [id number] / / Procedures Procedure Name Priority Date/Time Associated Diagnosis Comments ANNUAL BMP BLOOD TEST Routine 10/23/2023 from Last 3 Months or Most Recently Relevant to Health Maintenance Results * Annual BMP Blood Test (10/23/2023) Annual BMP Blood Test Abstracted us Historical Provider MD HEALTH MAINTENANCE Final Result from Last 3 Months or Most Recently Relevant to Health Maintenance Insurance [employer] [place] [employer]AGE Care Teams Vertical Boring Mill Operator Relationship Specialty Start Date End Date Neelima Bentley MD [address] [address] PCP - General 05/21/22
--- OUTSIDE RECORDS SUMMARY | 2025-05-16 10:17 | XMS_ITS | Encounter Summary ---
Author Organization [facility], Address [address] [place] [address] Phone Care Team Providers Care Application Penetration Tester Name Role Phone Neelima Bentley MD Primary Care Provider [phone] Encounter Details Date Type Department Care Team (Late st Contact Info) Description 08/02/2024 Documentation Only [facility] [address] [place] [address] Juan Luis Martínez MD [address] [place] [address] [place] [address] Social History Tobacco Use Types [...] Visit [facility] Faby [address] [place] [phone] Juan Luis Martínez MD [address] [place] [address] [place] [address] documented as of this encounter Visit Diagnoses Not on filedocumented in this encounter Care Teams Application Penetration Tester Relationship Specialty Start Date End Date Neelima Bentley MD [address] [place] [address] PCP - General Internal Medicine 04/11/24 documented as of this encounter
--- OUTSIDE RECORDS SUMMARY | 2025-05-16 10:17 | XMS_ITS | Clinical Summary ---
Author Organization [facility] Address [address] [place] [address] Care Team Providers Care Grants Assistant Name Role Phone Neelima Bentley MD Primary Care Provider Arian Fajardo MD Unavailable Allergies Active Allergy Reactions Criticality Noted Date Comments Statins Other (See Comments) 12/18/2021 Cramps Cramps Medications aspirin 81 MG chewable tablet Chew 81 mg. Ac tive ezetimibe (ZeTIA) 10 MG tablet Take 10 mg by mouth daily. 03/15/2023 Active fenofibrate (TRICOR) 145 MG tablet 06/09/2023 Active Lantus SoloStar 100 UNIT/ML prefilled pen injection INJECT 60 UNITS INTO THE SKIN 2 TIMES DAILY. 05/10/2023 Active metFORMIN (GLUCOPHAGE) 1000 MG tablet TAKE 1 TABLET BY MOUTH TWICE A DAY W/MEALS 03/16/2023 Active tamsulosin (FLOMAX) 0.4 MG capsule TAKE 1 CAPSULE BY MOUTH 30 MINS AFTER SAME MEAL EVERY DAY. 03/21/2023 Active valsartan-hydro CHLOROthiazide (DIOVAN-HCT) 160-25 MG per tablet Take 1 tablet by mouth daily. 05/19/2023 Active Social History Tobacco Use Types Packs/Day Years Used Date Smoking Tobacco: Never Smokeless Tobacco: Never Alcohol Use Standard Drinks/Week Comments Never 0 (1 standard drink = 0.6 oz pur e alcohol) Sex and Gender Information Value Date Recorded Sex Assigned at Male 07/02/2023 5:11 PM EST Legal Sex Male 2:22 PM EDT Gender Identity Male 07/02/2023 5:11 PM EST Sexual Orientation Choose not to disclose 2023 5:11 PM EST Last Filed Vital Signs Vital Sign Reading Time Taken Comments Blood Pressure - - Pulse - - Temperature - - Respiratory Rate - - Oxygen Saturation - - Inhaled Oxygen Concentration - - Weight 113 kg (250 lb) 06/10/2023 9:48 AM EST Height 182.9 cm (6') 06/10/2023 9:48 AM EST Body Mass Index 33.91 06/10/2023 9:48 AM EST Plan of Treatment Health Maintenance Due Date Last Done Comments Advance Care Planning 1945 Hepatitis C Virus Screening 1945 DTaP/Tdap/Td Vaccines (1 - Tdap) 1965 Pneumococcal Vaccines 50+ (1 of 1 - PCV) 1996 Zoster (Shingles) Vaccine (1 of 2) 1996 RSV Vaccine 50 years and older and Patients (1 - 1-dose 75+ series) 2021 Influenza Vaccine 01/13/2025 02/24/2023, , 03/22/2021, Additional history exists COVID-19 Vaccine ( season) 2025 09/22/2021, 03/22/2021, 09/24/2020, Additional history exists Hepatitis B Vaccines Aged Out No long er eligible based on patient's age to complete this topic Insurance [facility] [place] [address] [facility] [place] [address] [facility] [place] [address] [facility] [place] [address] Care Teams Grants Assistant Relationship Specialty Start Date End Date Neelima Bentley MD [address] [place] [phone] PCP - General Arian Fajardo MD [address] [place] [phone] Otolaryngology 06/10/23
== END 2025-05-16 10:08 | disposition home or self-care (01) ==
LOC: HO.HPHYS 09:32
PROVIDERS: PCP Pediatrics; Visit Provider Physical Medicine & Rehabilitation
DX: M25.531 Pain in right wrist (principal); M54.16 Radiculopathy, lumbar region; M48.062 Spinal stenosis, lumbar region with neurogenic claudication; M96.1 Postlaminectomy syndrome, not elsewhere classified
CPT/HCPCS: 20605; 99214

== ENCOUNTER → 2025-05-16 09:32 | Outpatient (BNVA) | payer OTHER, SELFPAY | PROVIDERS: PCP Pediatrics; Visit Provider Physical Medicine & Rehabilitation | DX: M48.062 Spinal stenosis, lumbar region with neurogenic claudication (principal); M54.16 Radiculopathy, lumbar region; M96.1 Postlaminectomy syndrome, not elsewhere classified; M25.531 Pain in right wrist | CPT/HCPCS: 20605; J2003; J3301 ==